=== PATIENT | female | born 1935 | race Caucasian/White ===

== ENCOUNTER → 2017-08-06 | Day surgery (SDC) | payer MEDICARE ==
[~2017-08-06] MED LIST: AMLODIPINE BESYL5 MG PO; ARICEPT5 MG PO; ASPIR 8181 MG PO; CALTRATE 600 W1 EACH PO; CLONIDINE HCL0.3 MG PO; CORDARONE200 MG PO; COREG3.125 MG PO; DEXAMETHASONE SOD PHOS 10 MG/1 ML VIAL ONE; FENTANYL CITRATE/PF 100MCG/2 ML INJ ONE; FISH OIL500 M1 PO; FUROSEMIDE40 MG PO; HUMULIN R100 UNIT/2; HYDRALAZINE HCL25 MG PO; IOPAMIDOL 200 MG/ML 20 ML VIAL IT ONE; JANUVIA100 MG PO; LIDOCAINE HCL 1% 30ML-PF VIAL ONE; LIDOCAINE HCL 2% LOCAL INJ 5 ML SDV VIAL INJ ONE; MECLIZINE HCL12.5 MG PO; MIDAZOLAM HCL 2 MG/2 ML VIAL ONE; NIFEDIPINE XL30 MG PO; NORCO 7.5-3251 EACH PO; OXYBUTYNIN CHLOR5 M1 PO; PEPCID20 MG PO; PLAVIX75 MG PO; PRAVASTATIN SOD20 MG PO; PROPOFOL IV EMULSION 10 MG/ML 20 ML VIAL ONE; SEROQUEL25 MG PO; SERTRALINE HCL25 MG PO; TYLENOL EXTRA500 MG PO; VASOTEC5 MG PO; Z.0.CATAPRES0.2 MG PO; Z.0.GLUCOPHAGE500 MG PO; Z.0.JANUVIA100 MG PO; Z.0.LISINOPRIL20 MG PO; ZANTAC150 MG PO
== END | disposition home or self-care (01) ==
LOC: OR 05:46
PROVIDERS: ATTEND Physical Medicine & Rehabilitation Pain Medicine
DX: M54.16 Radiculopathy, lumbar region (principal); E11.9 Type 2 diabetes mellitus without complications; M17.12 Unilateral primary osteoarthritis, left knee; I25.10 Atherosclerotic heart disease of native coronary artery without angina pectoris; I11.0 Hypertensive heart disease with heart failure; I50.9 Heart failure, unspecified; G47.33 Obstructive sleep apnea (adult) (pediatric); N39.0 Urinary tract infection, site not specified; G30.9 Alzheimer's disease, unspecified; F02.80 Dementia in other diseases classified elsewhere, unspecified severity, without behavioral disturbance, psychotic disturbance, mood disturbance, and anxiety; F32.9 Major depressive disorder, single episode, unspecified; Z79.82 Long term (current) use of aspirin; Z79.02 Long term (current) use of antithrombotics/antiplatelets; Z90.5 Acquired absence of kidney; Z98.61 Coronary angioplasty status; Z95.810 Presence of automatic (implantable) cardiac defibrillator; Z85.528 Personal history of other malignant neoplasm of kidney
CPT/HCPCS: 36415; 64483; 64484; 77003; 82948; 93005; J1100; J2001 ×2; J2250; Q9966

== ENCOUNTER → 2017-09-23 | Outpatient (CLI) | payer MEDICARE ==
[~2017-09-23] MED LIST changes: -DEXAMETHASONE SOD PHOS 10 MG/1 ML VIAL ONE; -FENTANYL CITRATE/PF 100MCG/2 ML INJ ONE; -IOPAMIDOL 200 MG/ML 20 ML VIAL IT ONE; -LIDOCAINE HCL 1% 30ML-PF VIAL ONE; -LIDOCAINE HCL 2% LOCAL INJ 5 ML SDV VIAL INJ ONE; -MIDAZOLAM HCL 2 MG/2 ML VIAL ONE; -PROPOFOL IV EMULSION 10 MG/ML 20 ML VIAL ONE
--- NOTE | 2017-09-23 12:15 | Diagnostic Imaging Report ---
PROCEDURE: Frontal and lateral views of the chest. COMPARISON: Chest 2 views 11/11/2016. INDICATIONS: MALIGNANT NEOPLASM OF KIDNEY FINDINGS: Lines/tubes: Left chest cardiac device with tip projecting over the expected region of the right atrium and ventricle. Lungs: The lungs are well inflated and clear. There is no evidence of pneumonia or pulmonary edema. Pleura: There is no pleural effusion or pneumothorax. Heart and mediastinum: The heart and the mediastinum are normal. Bones: No acute bony abnormality. Degenerative changes of the thoracic spine. IMPRESSION: No acute radiographic abnormality. Dictated by: Luis Craig M.D. on 09/23/2017 at 12:16 Electronically approved by: Luis Craig M.D. on 09/23/2017 at 12:16
--- NOTE | 2017-09-23 13:07 | Diagnostic Imaging Report ---
PROCEDURE:US RETROPERITONEAL ( KIDNEY ). COMPARISON:Patients [facility], [place], US RETROPERITONEAL ( KIDNEY )., 11/11/2016, 12:26. INDICATIONS:F/U RT RCC \T\ PARTIAL NEPHRECTOMY 2006 TECHNIQUE: Rowell-scale and color sonographic images of the bilateral kidneys and bladder where obtained in transverse and longitudinal planes. FINDINGS: RIGHT KIDNEY: Postoperative changes are re-demonstrated from partial nephrectomy. The kidney measures 5.7 cm in length. Cysts: Unilocular cyst measures 10 x 9 x 9 mm in the interpolar cortex Solid masses: None Stones: None Hydronephrosis: None Echogenicity: Normal LEFT KIDNEY: 10.5 cm in length Cysts: None Solid masses: None Stones: None Hydronephrosis: None Echogenicity: Normal Bladder: Ureteral jets are visible. No free fluid. Visualized portions of the liver demonstrate no focal abnormality. CONCLUSION: Simple cyst in the right kidney as described above. No mass in either kidney to suggest RCC. Dictated by: Suresh Cam M.D. on 09/23/2017 at 13:07 Electronically approved by: Suresh Cam M.D. on 09/23/2017 at 13:07
== END ==
LOC: US 10:54
PROVIDERS: ATTEND Urology
DX: C64.1 Malignant neoplasm of right kidney, except renal pelvis (principal); M54.16 Radiculopathy, lumbar region
CPT/HCPCS: 71046; 76770

== ENCOUNTER → 2018-04-08 | Day surgery (SDC) | payer MEDICARE ==
[~2018-04-08] MED LIST changes: +COMBIVENT RESPIM4 GM IH; +DEXAMETHASONE SOD PHOS 10 MG/1 ML VIAL ONE; +IPRATROPIU0.2 MG/1 M NEB; +LIDOCAINE HCL 1% 30ML-PF VIAL ONE; +LIDOCAINE HCL 2% LOCAL INJ 5 ML SDV VIAL INJ ONE; +Lisinopril PO; +MYRBETRIQ50 MG PO; +NITROFURANTOIN100 MG PO; +NITROSTAT0.4 MG SL; +PRILOSEC10 M1 PEG; +PROPOFOL IV EMULSION 10 MG/ML 20 ML VIAL ONE; +RANEXA500 MG PO; +Xarelto PO
[2018-04-08 06:16] LABS: BASOPHILS # (AUTO) 0.1 (0.0-0.1); EOSINOPHILS # (AUTO) 0.1 (0.0-0.4); EOSINOPHILS % 2.3 % (0.0-6.0); HEMATOCRIT 34.1 % (34.2-44.1); HEMOGLOBIN 11.3 g/dL (12.0-16.0); LYMPHOCYTES # (AUTO) 1.3 (1.0-3.2); LYMPHOCYTES % 25.8 % (18.0-39.1); MEAN CORPUSCULAR HEMOGLOBIN 30.6 pg (28-32); MEAN CORPUSCULAR HGB CONC 33.1 g/dL (31-35); MEAN CORPUSCULAR VOLUME 92.4 fL (81-99); MONOCYTES # (AUTO) 0.5 (0.2-0.8); MONOCYTES % 9.4 % (4.4-11.3); NEUTROPHILS # (AUTO) 3.2 (2.1-6.9); NEUTROPHILS % 61.1 % (38.7-80.0); PLATELET COUNT 188 x10e3/uL (140-360); RED BLOOD COUNT 3.69 x10e6/uL (3.6-5.1); RED CELL DISTRIBUTION WIDTH 12.7 % (11.7-14.4)
[2018-04-08 08:10] VITALS: BP 148/57
--- OUTSIDE RECORDS SUMMARY | 2018-04-13 12:52 | XMS REPORT | Continuity of Care Document ---
Author Author Yusuf bailey [facility] Interface Address Unknown Phone Unavailable Problems Problem Status Onset Date Classification Date Reported Comments Source Discharge Diagnosis: Acute back pain 03/21/2015 03/24/2015 [facility] Discharge Diagnosis: Accidental fall 03/21/2015 03/24/2015 [facility] DIZZINESS Active 03/21/2015 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 Diabetes Resolved Problem 03/24/2015 [facility] HTN (<span ID="[id number]">Confirmed</span>) Resolved Problem 03/24/2015 [facility] Kidney cancer, primary, with metastasis from kidney to other site Resolved Problem 03/24/2015 [facility] Medications Medication Details Route Status Patient Instructions Ordering Provider Order Date Source Clonidine Hydrochloride 0.1 MG Oral Tablet 0.1 mg=1 tab, PO, BID, PRN Hypertension, # 20 tab, 3 Refill(s) Active 03/21/2015 [facility] Hydralazine Hydrochloride 25 MG Oral Tablet 25 mg, Route: PO, Drug form: TAB, ONCE, Dosing Weight 66.818, kg, Start date: 03/21/15 16:22:00, Stop date: 03/21/15 16:22:00 Inactive 03/21/2015 [facility] tramadol hydrochloride 50 MG Oral Tablet 50 mg=1 tab, PO, BID, X 15 day, # 30 tab, 0 Refill(s) Active 03/21/2015 [facility] Hydrochlorothiazide 25 mg, 1 tab, Route: PO, Drug form: TAB, ONCE, Dosing Weight 66.818, kg, Start date: 03/21/15 15:54:00, Stop date: 03/21/15 15:54:00Notes: (Same as: Hydrodiuril) With food. Inactive 03/21/2015 [facility] metoprolol tartrate 25 mg, 0.5 tab, Route: PO, Drug form: TAB, ONCE, Dosing Weight 66.818, kg, Priority: STAT, Start date: 03/21/15 15:53:00, Stop date: 03/21/15 15:53:00Notes: (Same as: Lopressor) Inactive 03/21/2015 [facility] potassium chloride 40 mEq, 2 tab, Route: PO, Drug form: ERTAB, ONCE, Dosing Weight 66.818, kg, Priority: STAT, Start date: 03/21/15 15:47:00, Stop date: 03/21/15 15:47:00Notes: (Same as: K-Dur 20) "Do Not Crush" With food and full glass of water Inactive 03/21/2015 [facility] Saline Flush 0.9% 10 mL, Route: IVP, Drug Form: INJ, Dosing Weight 66.818, kg, PRN, PRN Line Flush, Start date: 03/21/15 12:06:00, Duration: 30 day, Stop date: 04/20/15 12:05:00Notes: (Same as: BD Posiflush) Inactive 03/21/2015 [facility] Allergies, Adverse Reactions, Alerts Substance Category Reaction Severity Reaction type Status Date Reported Comments Source codeine Assertion Drug allergy Active [facility] Immunizations Immunization Date Given Site Status Last Updated Comments Source Results Order Name Results Value Reference Range Date Interpretation Comments Source CARDIAC ENZYMES Troponin-I null 0.00 - 0.40 03/21/2015 [facility] CARDIAC ENZYMES Total CK 120 unit/L 12 - 191 03/21/2015 [facility] CARDIAC ENZYMES CK MB 1.8 ng/mL 0.5 - 3.6 03/21/2015 [facility] CARDIAC ENZYMES CK MB Index 1.5 0.0 - 2.5 03/21/2015 [facility] CHEM PANEL Alk Phos 79 unit/L 39 - 136 03/21/2015 [facility] CHEM PANEL Bili Total 0.6 mg/dL 0.2 - 1.3 03/21/2015 [facility] CHEM PANEL AST 23 unit/L 0 - 37 03/21/2015 [facility] CHEM PANEL ALT 27 unit/L 0 - 65 03/21/2015 [facility] CHEM PANEL Globulin 3.7 g/dL 2.0 - 4.0 03/21/2015 [facility] CHEM PANEL A/G Ratio 1.1 0.7 - 1.6 03/21/2015 [facility] CHEM PANEL B/C Ratio 16 6 - 25 03/21/2015 [facility] CHEM PANEL AGAP 9.3 meq/L 10.0 - 20.0 03/21/2015 [facility] CHEM PANEL Creatinine Lvl 1.3 mg/dL 0.5 - 1.4 03/21/2015 [facility] CHEM PANEL Albumin Lvl 4.0 g/dL 3.5 - 5.0 03/21/2015 [facility] CHEM PANEL Total Protein 7.7 g/dL 6.4 - 8.4 03/21/2015 [facility] CHEM PANEL CO2 31 meq/L 24 - 32 03/21/2015 [facility] CHEM PANEL Glucose Lvl 151 mg/dL 70 - 99 03/21/2015 [facility] CHEM PANEL BUN 21 mg/dL 7 - 22 03/21/2015 [facility] CHEM PANEL Calcium Lvl 9.2 mg/dL 8.5 - 10.5 03/21/2015 [facility] CHEM PANEL Sodium Lvl 135 meq/L 135 - 145 03/21/2015 [facility] CHEM PANEL Chloride Lvl 98 meq/L 95 - 109 03/21/2015 [facility] CHEM PANEL Potassium Lvl 3.3 meq/L 3.5 - 5.1 03/21/2015 [facility] CHEM PANEL eGFR 39 mL/min/1.73m2 03/21/2015 Result Comment: The eGFR is calculated using the CKD-EPI formula. In most young, healthy individuals the eGFR will be >90 mL/min/1.73m2. The eGFR declines with age. An eGFR of 60-89 may be normal in some populations, particularly the elderly, for whom the CKD-EPI formula has not been extensively validated. Use of the eGFR is not recommended in the following populations: Individuals with unstable creatinine concentrations, including patients and those with serious co-morbid conditions. Patients with extremes in muscle mass or diet. The data above are obtained from the National Kidney Disease Education Program (NKDEP) which additionally recommends that when the eGFR is used in patients with extremes of body mass index for purposes of drug dosing, the eGFR should be multiplied by the estimated BMI. [facility] CHEM PANEL Magnesium Lvl 1.7 mg/dL 1.8 - 2.4 03/21/2015 [facility] CHEM PANEL Phosphorus 2.7 mg/dL 2.5 - 4.5 03/21/2015 [facility] HEMATOLOGY Hgb 13.2 g/dL 12.0 - 16.0 03/21/2015 [facility] HEMATOLOGY Hct 39.8 % 36.0 - 48.0 03/21/2015 [facility] HEMATOLOGY MCV 86.0 fL 80.0 - 98.0 03/21/2015 [facility] HEMATOLOGY MPV 8.5 fL 7.4 - 10.4 03/21/2015 [facility] HEMATOLOGY RDW 14.2 % 11.5 - 14.5 03/21/2015 [facility] Platelet 182 K/CMM 133 - 450 03/21/2015 [facility] MCHC 33.1 g/dL 32.0 - 36.0 03/21/2015 [facility] MCH 28.4 pg 27.0 - 31.0 03/21/2015 [facility] HEMATOLOGY RBC 4.63 M/CMM 4.20 - 5.40 03/21/2015 [facility] HEMATOLOGY WBC 8.8 K/CMM 3.7 - 10.4 03/21/2015 [facility] HEMATOLOGY INR 1.06 0.85 - 1.17 03/21/2015 [facility] HEMATOLOGY PTT 30.1 s 22.9 - 35.8 03/21/2015 [facility] HEMATOLOGY PT 14.1 s 12.0 - 14.7 03/21/2015 [facility] HEMATOLOGY Basophils # 0.1 K/CMM 0.0 - 0.2 03/21/2015 [facility] HEMATOLOGY Monocytes # 0.2 K/CMM 0.0 - 0.8 03/21/2015 [facility] HEMATOLOGY Segs-Bands # 7.8 K/CMM 1.5 - 8.1 03/21/2015 [facility] HEMATOLOGY Lymphocytes # 0.6 K/CMM 1.0 - 5.5 03/21/2015 [facility] HEMATOLOGY Basophils 1.1 % 0.0 - 1.0 03/21/2015 [facility] HEMATOLOGY Monocytes 2.8 % 2.0 - 12.0 03/21/2015 [facility] HEMATOLOGY Lymphocytes 7.2 % 20.0 - 40.0 03/21/2015 [facility] HEMATOLOGY Segs 88.9 % 45.0 - 75.0 03/21/2015 [facility] URINE AND STOOL UA Color Ltyellow 03/21/2015 [facility] URINE AND STOOL UA Urobilinogen <=1.0 mg/dL 0.1 - 1.0 03/21/2015 [facility] URINE AND STOOL UA Bacteria Occasional /HPF None Seen /HPF 03/21/2015 [facility] URINE AND STOOL UA RBC 3 /HPF 0 - 2 03/21/2015 [facility] URINE AND STOOL UA WBC 1 /HPF 0 - 5 03/21/2015 [facility] URINE AND STOOL UA Leuk Est Negative (03/21/15 12:24 PM) Negative 03/21/2015 [facility] URINE AND STOOL UA Sq Epi Occasional /LPF Few /LPF 03/21/2015 [facility] URINE AND STOOL UA Nitrite Negative (03/21/15 12:24 PM) Negative 03/21/2015 [facility] URINE AND STOOL UA Blood Negative (03/21/15 12:24 PM) Negative 03/21/2015 [facility] URINE AND STOOL UA Bili Negative *NA* (03/21/15 12:24 PM) Negative 03/21/2015 [facility] URINE AND STOOL UA Ketones Trace mg/dL Negative mg/dL 03/21/2015 [facility] URINE AND STOOL UA Glucose 500 mg/dL Negative mg/dL 03/21/2015 [facility] URINE AND STOOL UA pH 8.0 5.0 - 8.0 03/21/2015 [facility] URINE AND STOOL UA Spec Grav 1.008 <=1.030 03/21/2015 [facility] URINE AND STOOL UA Turbidity Clear (03/21/15 12:24 PM) Clear 03/21/2015 [facility] URINE AND STOOL UA Protein 100 mg/dL Negative mg/dL 03/21/2015 [facility] Spine cervical wo contrast CT Spine cervical wo contrast CT CT cervical spine without contrast with sagittal and coronal reformatted images. HISTORY: Trauma, pain. COMPARISON: None available. FINDINGS: No fracture is seen. Vertebral body heights are maintained. No facet subluxation. Severe multilevel left-sided facet arthrosis and moderate multilevel right-sided facet arthrosis. Minimal grade 1 degenerative anterolisthesis of C6 on C7. Mild- moderate multilevel degenerative disc space narrowing with mild endplate spurring. Multilevel moderate to severe left neural foraminal narrowing related to uncovertebral spurring and facet arthrosis. The paraspinal soft tissues are unremarkable. A 4 mm right thyroid nodule is noted. Lung apices are clear. Moderate carotid calcification. IMPRESSION: 1. No acute abnormality. 2. Cervical spondylosis with multilevel moderate to severe left neural foraminal narrowing. 3. Small right thyroid nodule and moderate carotid calcification. SL: 16 03/21/2015 - - Read by: Matthew Johnson MD Dictated Date/time: 03/21/15 13:15 Electronically Signed by: Matthew Johnson MD 03/21/15 13:19 FINAL REPORT [facility] Brain wo contrast CT Brain wo contrast CT CT Head no Contrast: COMPARISON: No priors CLINICAL HX: Posterior head pain, fall TECHNIQUE: Contiguous transaxial images of the brain were performed without administration of IV contrast. FINDINGS: There is no evidence for parenchymal bleed, extra-axial collections, intracranial masses or midline shift. No displaced fractures of the calvarium or other significant bony abnormality is noted. There is mild cerebral atrophy. Extensive decrease in attenuation in the periventricular white matter is likely related to chronic ischemic change from small vessel disease. No acute infarct is evident. The visualized paranasal sinuses and the mastoids are clear. IMPRESSION: No significant acute brain abnormality is noted. SL:13 03/21/2015 - - Read by: Josue Dotson MD Dictated Date/time: 03/21/15 12:54 Electronically Signed by: Josue Dotson MD 03/21/15 12:59 FINAL REPORT [facility] Chest 1view DX Chest 1view DX CHEST, ONE VIEW HISTORY: Chest pain. COMPARISON: None available. FINDINGS: The lungs are clear. No significant pleural effusion. No pneumothorax. Heart size normal. Transvenous cardiac pacemaker/AICD. No acute osseous abnormality. SL: 16 03/21/2015 - - Read by: Matthew Johnson MD Dictated Date/time: 03/21/15 13:21 Electronically Signed by: Matthew Johnson MD 03/21/15 13:21 FINAL REPORT [facility] Spine lumbar 2 or 3 views DX Spine lumbar 2 or 3 views DX PROCEDURE: Spine lumbar AP lateral CLINICAL INFORMATION Pain Post Trauma COMPARISON: None. Three views. Mild lumbar dextroscoliosis. Anterolisthesis of L4 on L5 measures 15 mm. Maintained lumbar vertebral body heights. Disc height loss greatest at L1-L2 through L3-L4 with anterior spurring. Calcified aorta. Maintained pedicles, spinous processes. Obscured transverse processes by bowel gas. Surgical clips in the right upper quadrant. Constipation. IMPRESSION: 1. L4-L5 anterolisthesis. 2. Spondylosis greatest at L2-L4. SL: 12 03/21/2015 - - Read by: Jp Weston MD Dictated Date/time: 03/21/15 12:43 Electronically Signed by: Jp Weston MD 03/21/15 12:49 FINAL REPORT [facility] Vital Signs Vital Sign Value Date Comments Source Respitory Rate 18 03/21/2015 [facility] Systolic (mm Hg) 126 03/21/2015 [facility] Diastolic (mm Hg) 83 03/21/2015 [facility] Temperature Oral (F) 97.7 F 03/21/2015 [facility] Systolic (mm Hg) 180 03/21/2015 [facility] Diastolic (mm Hg) 82 03/21/2015 [facility] Respitory Rate 23 03/21/2015 [facility] Systolic (mm Hg) 187 03/21/2015 [facility] Diastolic (mm Hg) 92 03/21/2015 [facility] Respitory Rate 19 03/21/2015 [facility] Heart Rate 64 03/21/2015 [facility] Weight 66.818 03/21/2015 [facility] BMI Calculated 26.94 03/21/2015 [facility] Temperature Oral (F) 98.0 F 03/21/2015 [facility] Height 157.48 cm 03/21/2015 [facility] Encounters Location Location Details Encounter Type Encounter Number Reason For Visit Attending Provider ADM Date DC Date Status Source [facility] [id number] Armand Lynn 03/21/2015 03/21/2015 [facility] Procedures Procedure Code Date Perfomer Comments Source
--- OUTSIDE RECORDS SUMMARY | 2018-04-13 12:52 | XMS REPORT | Summary of Care ---
Author Author [facility] Organization [facility] Address Unknown Phone Unavailable Encounter LORENE Holt(GILMA) [id number] Date(s): 03/21/15 - 03/21/15 [facility] [address] [place] [address]- [phone] Discharge Diagnosis: Acute back pain Discharge Diagnosis: Accidental fall Discharge Disposition: Home Attending Physician: Armand Lynn MD Vital Signs 1 2 3 Most recent to oldest [Reference Range]: 157.48 cm (03/21/15 11:27 AM) Height 1 2 3 Most recent to oldest [Reference Range]: 97.7 DegF (03/21/15 6:00 PM) 98.0 DegF (03/21/15 11:27 AM) Temperature Oral [96.4-99.1 DegF] 1 2 3 Most recent to oldest [Reference Range]: 126/83 mmHg (03/21/15 6:00 PM) 180/82 mmHg *HI* (03/21/15 5:15 PM) 187/92 mmHg *HI* (03/21/15 4:15 PM) Blood Pressure [90-140/60-90 mmHg] 1 2 3 Most recent to oldest [Reference Range]: 18 BRMIN (03/21/15 6:00 PM) 23 BRMIN *HI* (03/21/15 5:15 PM) 19 BRMIN (03/21/15 4:15 PM) Respiratory Rate [14-20 BRMIN] 1 2 3 Most recent to oldest [Reference Range]: 64 bpm (03/21/15 11:27 AM) Peripheral Pulse Rate [60-100 bpm] 1 2 3 Most recent to oldest [Reference Range]: 66.818 kg (03/21/15 11:27 AM) Weight 1 2 3 Most recent to oldest [Reference Range]: 26.94 m2 (03/21/15 11:27 AM) Body Mass Index Problem List Condition Effective Dates Status Health Status Informant CHF (congestive Resolved heart failure)(Confirmed) Diabetes(Confirmed) Resolved HTN Resolved (hypertension)(Confi rmed) Kidney cancer, Resolved primary, with metastasis from kidney to other site(Confirmed) Allergies, Adverse Reactions, Alerts Substance Reaction Severity Status codeine Active Medications cloNIDine 0.1 mg oral tablet 0.1 mg=1 tab, PO, BID, PRN Hypertension, # 20 tab, 3 Refill(s) Start Date: 03/21/15 Stop Date: 04/30/15 Status: Ordered hydrALAZINE 25 mg oral tablet 25 mg, Route: PO, Drug form: TAB, ONCE, Dosing Weight 66.818, kg, Start date: 16:22:00, Stop date: 03/21/15 16:22:00 Start Date: 03/21/15 Stop Date: 03/21/15 Status: Completed hydrochlorothiazide 25 mg, 1 tab, Route: PO, Drug form: TAB, ONCE, Dosing Weight 66.818, kg, Start d ate: 03/21/15 15:54:00, Stop date: 03/21/15 15:54:00 Notes: (Same as: Hydrodiuril) With food. Start Date: 03/21/15 Stop Date: 03/21/15 Status: Discontinued metoprolol tartrate 25 mg, 0.5 tab, Route: PO, Drug form: TAB, ONCE, Dosing Weight 66.818, kg, Prior ity: STAT, Start date: 03/21/15 15:53:00, Stop date: 03/21/15 15:53:00 Notes: (Same as: Lopressor) Start Date: 03/21/15 Stop Date: 03/21/15 Status: Completed potassium chloride 40 mEq, 2 tab, Route: PO, Drug form: ERTAB, ONCE, Dosing Weight 66.818, kg, Prio rity: STAT, Start date: 03/21/15 15:47:00, Stop date: 03/21/15 15:47:00 Notes: (Same as: K-Dur 20)"Do Not Crush" With food and full glass of water Start Date: 03/21/15 Stop Date: 03/21/15 Status: Completed Saline Flush 0.9% 10 mL, Route: IVP, Drug Form: INJ, Dosing Weight 66.818, kg, PRN, PRN Line Flush , Start date: 03/21/15 12:06:00, Duration: 30 day, Stop date: 04/20/15 12:05:00 Notes: (Same as: BD Posiflush) Start Date: 03/21/15 Stop Date: 03/21/15 Status: Discontinued tramadol 50 mg oral tablet 50 mg=1 tab, PO, BID, X 15 day, # 30 tab, 0 Refill(s) Start Date: 03/21/15 Stop Date: 04/05/15 Status: Ordered Results ELECTROLYTES Most recent to 1 oldest [Reference Range]: Sodium Lvl [135-145 135 mEq/L mEq/L] (03/21/15 12:24 PM) Potassium Lvl 3.3 mEq/L [3.5-5.1 mEq/L] *LOW* (03/21/15 12:24 PM) Chloride Lvl [95-109 98 mEq/L mEq/L] (03/21/15 12:24 PM) CO2 [24-32 mEq/L] 31 mEq/L (03/21/15 12:24 PM) AGAP [10.0-20.0 9.3 mEq/L mEq/L] *LOW* (03/21/15 12:24 PM) CHEM PANEL Most recent to 1 oldest [Reference Range]: Creatinine Lvl 1.3 mg/dL [0.5-1.4 mg/dL] (03/21/15 12:24 PM) eGFR 39 mL/min/1.73m2 1 *NA* (03/21/15 12:24 PM) BUN [7-22 mg/dL] 21 mg/dL (03/21/15 12:24 PM) B/C Ratio [6-25] 16 (03/21/15 12:24 PM) Glucose Lvl [70-99 151 mg/dL mg/dL] *HI* (03/21/15 12:24 PM) Total Protein 7.7 g/dL [6.4-8.4 g/dL] (03/21/15 12:24 PM) Albumin Lvl [3.5-5.0 4.0 g/dL g/dL] (03/21/15 12:24 PM) Globulin [2.0-4.0 3.7 g/dL g/dL] (03/21/15 12:24 PM) A/G Ratio [0.7-1.6] 1.1 (03/21/15 12:24 PM) Calcium Lvl 9.2 mg/dL [8.5-10.5 mg/dL] (03/21/15 12:24 PM) Phosphorus [2.5-4.5 2.7 mg/dL mg/dL] (03/21/15 12:24 PM) Magnesium Lvl 1.7 mg/dL [1.8-2.4 mg/dL] *LOW* (03/21/15:24 PM) ALT [0-65 unit/L] 27 unit/L (03/21/15 12:24 PM) AST [0-37 unit/L] 23 unit/L (03/21/15 12:24 PM) Alk Phos [39-136 79 unit/L unit/L] (03/21/15:24 PM) Bili Total [0.2-1.3 0.6 mg/dL mg/dL] (03/21/15 12:24 PM) 1Result Comment: The eGFR is calculated using the [...] from the National Kidney Disease Education Program ( NKDEP) which additionally recommends that when the eGFR is used in patients with extremes of body mass index for purposes of drug dosing, the eGFR should be mul tiplied by the estimated BMI. CARDIAC ENZYMES Most recent to 1 oldest [Reference Range]: Total CK [12-191 120 unit/L unit/L] (03/21/15 12:24 PM) CK MB [0.5-3.6 1.8 ng/mL ng/mL] (03/21/15 12:24 PM) CK MB Index 1.5 [0.0-2.5] (03/21/15 12:24 PM) Troponin-I <0.02 ng/mL [0.00-0.40 ng/mL] (03/21/15 12:24 PM) URINE AND STOOL Most recent to 1 oldest [Reference Range]: UA Turbidity [Clear] Clear (03/21/15 12:24 PM) UA Color Ltyellow *NA* (03/21/15 12:24 PM) UA pH [5.0-8.0] 8.0 (03/21/15 12:24 PM) UA Spec Grav 1.008 [<=1.030] (03/21/15 12:24 PM) UA Glucose [Negative 500 mg/dL mg/dL] *ABN* (03/21/15 12:24 PM) UA Blood [Negative] Negative (03/21/15 12:24 PM) UA Ketones [Negative Trace mg/dL mg/dL] *ABN* (03/21/15 12:24 PM) UA Protein [Negative 100 mg/dL mg/dL] *ABN* (03/21/15 12:24 PM) UA Urobilinogen <=1.0 mg/dL [0.1-1.0 mg/dL] *NA* (03/21/15 12:24 PM) UA Bili [Negative] Negative *NA* (03/21/15 12:24 PM) UA Leuk Est Negative [Negative] (03/21/15 12:24 PM) UA Nitrite Negative [Negative] (03/21/15 12:24 PM) UA WBC [0-5 /HPF] 1 /HPF (03/21/15 12:24 PM) UA RBC [0-2 /HPF] 3 /HPF *HI* (03/21/15 12:24 PM) UA Bacteria [None Occasional /HPF Seen /HPF] *NA* (03/21/15 12:24 PM) UA Sq Epi [Few /LPF] Occasional /LPF *NA* (03/21/15 12:24 PM) HEMATOLOGY Most recent to 1 oldest [Reference Range]: WBC [3.7-10.4 K/CMM] 8.8 K/CMM (03/21/15 12:24 PM) RBC [4.20-5.40 4.63 M/CMM M/CMM] (03/21/15 12:24 PM) Hgb [12.0-16.0 g/dL] 13.2 g/dL (03/21/15 12:24 PM) Hct [36.0-48.0 %] 39.8 % (03/21/15 12:24 PM) MCV [80.0-98.0 fL] 86.0 fL (03/21/15:24 PM) MCH [27.0-31.0 pg] 28.4 pg (03/21/15:24 PM) MCHC [32.0-36.0 33.1 g/dL g/dL] (03/21/15:24 PM) RDW [11.5-14.5 %] 14.2 % (03/21/15:24 PM) Platelet [133-450 182 K/CMM K/CMM] (03/21/15:24 PM) MPV [7.4-10.4 fL] 8.5 fL (03/21/15 12:24 PM) Segs [45.0-75.0 %] 88.9 % *HI* (03/21/15 12:24 PM) Lymphocytes 7.2 % [20.0-40.0 %] *LOW* (03/21/15:24 PM) Monocytes [2.0-12.0 2.8 % %] (03/21/15 12:24 PM) Basophils [0.0-1.0 1.1 % %] *HI* (03/21/15 12:24 PM) Segs-Bands # 7.8 K/CMM [1.5-8.1 K/CMM] (03/21/15 12:24 PM) Lymphocytes # 0.6 K/CMM [1.0-5.5 K/CMM] *LOW* (03/21/15:24 PM) Monocytes # [0.0-0.8 0.2 K/CMM K/CMM] (03/21/15 12:24 PM) Basophils # [0.0-0.2 0.1 K/CMM K/CMM] (03/21/15 12:24 PM) PT [12.0-14.7 14.1 seconds seconds] (03/21/15 12:24 PM) INR [0.85-1.17] 1.06 (03/21/15 12:24 PM) PTT [22.9-35.8 30.1 seconds seconds] (03/21/15 12:24 PM) Immunizations No data available for this section Procedures No data available for this section Social History Social History Type Response Smoking Status Cigarette Smoking Last 365 Days No; Reg Smoking Cessation Counseling No; Former smoker; Exposure to Tobacco Smoke None Assessment and Plan No data available for this section
--- OUTSIDE RECORDS SUMMARY | 2018-04-13 12:52 | XMS REPORT ---
Author Author [facility] Address Unknown Phone Unavailable Care Team Providers Care Circulation Man Name Role Phone VIVIANA CEDILLO Unavailable Unavailable Problems This patient has no known problems. Allergies, Adverse Reactions, Alerts This patient has no known allergies or adverse reactions. Medications This patient has no known medications. Results Test Description Test Time Test Comments Text Results Atomic Results Result Comments CHEST 2 VIEWS 2018-03-09 11:25:00 [place] [address] Patient Name: JULIO CESAR NATION MR #: [id number] : 1935 Age/Sex: 82/F Req #: [id number] Adm Physician: Ordered by: VIVIANA CEDILLO MD Report #: [id number] Location: US Room/Bed: Procedure: [id number] DX/CHEST 2 VIEWS Exam Date: 03/08/18 Exam Time: 1440 REPORT STATUS: Signed PROCEDURE: Frontal and lateral views of the chest. COMPARISON: Chest radiograph 09/23/17. INDICATIONS: CHESK UP. HX RENAL CELL CARCINOMA FINDINGS: Lines/tubes: Left sided ACD with lead tips projecting over the right atrium and ventricle. Lungs: The lungs are well inflated and clear. There is no evidence of pneumonia or pulmonary edema. Pleura: There is no pleural effusion or pneumothorax. Heart and mediastinum: The cardiomediastinal silhouette is unremakrable. Bones: No acute bony abnormality. IMPRESSION: No acute radiographic abnormality. Dictated by: ELIAZAR LAWRENCE M.D. on 03/09/2018 at 11:25 Electronically approved by: ELIAZAR LAWRENCE M.D. on 03/09/2018 at 11:25 Dictated By: ELIAZAR LAWRENCE MD 112 Transcribed By: DANETTE on 03/09/18 1125 COPY TO: VIVIANA CEDILLO MD US RENAL RETROPERITONEAL COMP 2018-03-08 16:54:00 [place] [address] Patient Name: JULIO CESAR NATION MR #: [id number] : 1935 Age/Sex: 82/F Req #: [id number] Adm Physician: Ordered by: VIVIANA CEDILLO MD Report #: [id number] Location: US Room/Bed: Procedure: [id number] US/US RENAL RETROPERITONEAL COMP Exam Date: 03/08/18 Exam Time: 1416 REPORT STATUS: Signed EXAM: Renal Ultrasound INDICATION: COMPARISON: Renal ultrasound dated 09/23/2017 TECHNIQUE: Transverse and longitudinal images of the kidneys and bladder were obtained. FINDINGS: Right Kidney: Size: 5.9 cm Echogenicity: Normal Parenchymal thickness: Decreased Collecting system: No hydronephrosis Stones: None Cyst/Mass: Lateral midpole 1.2 x 0.8 x 1.1 cm cyst. Left Kidney: Size: 10 cm Echogenicity: Normal Parenchymal thickness: Normal Collecting system: No hydronephrosis Stones: None Cyst/Mass: None Bladder: Unremarkable IMPRESSION: Small mildly atrophic right kidney. Otherwise, unremarkable. No significantly changed exophytic right midpole cyst. Signed by: Dr. Mil Urbina MD on 03/08/2018 4:59 PM Dictated By: MIL URBINA MD 58 Transcribed By: JEFERSON on 03/08/181658 COPY TO: VIVIANA CEDILLO MD CHEST 2 VIEWS [place] [address] Patient Name: JULIO CESAR NATION MR #: [id number] : 1935 Age/Sex: 82/F Req #: [id number] Adm Physician: Ordered by: VIVIANA CEDILLO MD Report #: [id number] Location: Room/Bed: Procedure: [id number] DX/CHEST 2 VIEWS Exam Date: 09/23/17 Exam Time: 1110 REPORT STATUS: Signed PROCEDURE: Frontal and lateral views of the chest. COMPARISON: Chest 2 views 11/11/2016. INDICATIONS: MALIGNANT NEOPLASM OF KIDNEY FINDINGS: Lines/tubes: Left chest cardiac device with tip projecting over the expected region of the right atrium and ventricle. Lungs: The lungs are well inflated and clear. There is no evidence of pneumonia or pulmonary edema. Pleura: There is no pleural effusion or pneumothorax. Heart and mediastinum: The heart and the mediastinum are normal. Bones: No acute bony abnormality. Degenerative changes of the thoracic spine. IMPRESSION: No acute radiographic abnormality. Dictated by: Dario Ceballos M.D. on 09/23/2017 at 12:16 Electronically approved by: Dario Ceballos M.D. on 09/23/2017 at 12:16 Dictated By: DARIO CEBALLOS MD 15 Transcribed By: DANETTE on 09/23/171215 COPY TO: VIVIANA CEDILLO MD US RENAL RETROPERITONEAL COMP [facility] [address] [address] Patient Name: JULIO CESAR NATION MR #: [id number] : 1935 Age/Sex: 82/F Req #: [id number] Adm Physician: Ordered by: VIVIANA CEDILLO MD Report #: [id number] Location: Room/Bed: Procedure: [id number] US/US RENAL RETROPERITONEAL COMP Exam Date: 09/23/17 Exam Time: 1135 REPORT STATUS: Signed PROCEDURE: US RETROPERITONEAL ( KIDNEY ). COMPARISON: [facility], , US RETROPERITONEAL ( KIDNEY )., 11/11/2016, 12:26. INDICATIONS: F/U RT RCC T PARTIAL NEPHRECTOMY 2006 TECHNIQUE: Rowell-scale and color sonographic images of the bilateral kidneys and bladder where obtained in transverse and longitudinal planes. FINDINGS: RIGHT KIDNEY: Postoperative changes are re-demonstrated from partial nephrectomy. The kidney measures 5.7 cm in length. Cysts: Unilocular cyst measures 10 x 9 x 9 mm in the interpolar cortex Solid masses: None Stones: None Hydronephrosis: None Echogenicity: Normal LEFT KIDNEY: 10.5 cm in length Cysts: None Solid masses: None Stones: None Hydronephrosis: None Echogenicity: Normal Bladder: Ureteral jets are visible. No free fluid. Visualized portions of the liver demonstrate no focal abnormality. CONCLUSION: Simple cyst in the right kidney as described above. No mass in either kidney to suggest RCC. Dictated by: Gagan Cam M.D. on 09/23/2017 at 13:07 Electronically approved by: Gagan Cam M.D. on 09/23/2017 at 13:07 Dictated By: GAGAN CAM MD 1309 Transcribed By: DANETTE on 09/23/17 1307 COPY TO: VIVIANA CEDILLO MD
== END | disposition home or self-care (01) ==
LOC: OR 05:24
PROVIDERS: ATTEND Physical Medicine & Rehabilitation Pain Medicine
DX: M47.26 Other spondylosis with radiculopathy, lumbar region (principal); K21.9 Gastro-esophageal reflux disease without esophagitis; I44.0 Atrioventricular block, first degree; I25.10 Atherosclerotic heart disease of native coronary artery without angina pectoris; I11.0 Hypertensive heart disease with heart failure; I50.9 Heart failure, unspecified; I25.2 Old myocardial infarction; E11.9 Type 2 diabetes mellitus without complications; M17.12 Unilateral primary osteoarthritis, left knee; Z91.041 Radiographic dye allergy status; Z88.6 Allergy status to analgesic agent; Z79.82 Long term (current) use of aspirin; Z79.02 Long term (current) use of antithrombotics/antiplatelets; Z79.84 Long term (current) use of oral hypoglycemic drugs; Z85.528 Personal history of other malignant neoplasm of kidney; Z90.5 Acquired absence of kidney; Z95.5 Presence of coronary angioplasty implant and graft; Z95.810 Presence of automatic (implantable) cardiac defibrillator
CPT/HCPCS: 36415; 64483; 64484; 82948; 85025; J1100; J2001 ×2; J2704; 77003

== ENCOUNTER → 2018-05-04 | Outpatient (CLI) | payer MEDICARE ==
[~2018-05-04] MED LIST changes: -DEXAMETHASONE SOD PHOS 10 MG/1 ML VIAL ONE; -LIDOCAINE HCL 1% 30ML-PF VIAL ONE; -LIDOCAINE HCL 2% LOCAL INJ 5 ML SDV VIAL INJ ONE; -PROPOFOL IV EMULSION 10 MG/ML 20 ML VIAL ONE
--- NOTE | 2018-05-05 11:49 | Diagnostic Imaging Report ---
History: Chronic back pain. Comparison studies: None Technique: Axial images were obtained from T11 through the sacrum. Coronal and sagittal images reconstructed from the axial data. Intravenous contrast: None Dose modulation, iterative reconstruction, and/or weight based adjustment of the mA/kV was utilized to reduce the radiation dose to as low as reasonably achievable. Findings: Number of non-rib bearing vertebral bodies: 5 Alignment: Grade 1-2 to anterolisthesis of L4 over L5 (11 mm). Mild dextroscoliosis centered at L3. Soft tissues: No paraspinal abnormalities. Atherosclerotic calcifications of the abdominal aorta and branches. Paraspinal muscles: Mild fatty infiltration of the posterior paraspinal musculature at the upper and mid lumbar spine. Moderate fatty infiltration of the lower lumbar spine lumbosacral junction secondary to atrophy. Vertebrae: No acute fractures, infection or neoplasm. Mild depressed T12 superior endplate, chronic. Degenerative changes: L1-L2: Disc degeneration with vacuum disc phenomenon, decreased intervertebral space and endplate irregularities on the right endplates. Diffuse disc bulge and mild facet hypertrophy results in mild canal stenosis and mild right foraminal narrowing L2-L3: Disc degeneration with obliterated intervertebral space. Asymmetric left disc osteophyte complex, mild facet hypertrophy results in mild canal stenosis and moderate left foraminal narrowing. 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 L3-L4: Disc degeneration with decreased intervertebral space and mild vacuum disc phenomenon. Diffuse disc bulge, moderate facet hypertrophy and ligamentum flavum thickening results in mild canal stenosis, moderate right and severe left foraminal narrowing. L4-L5: Disc degeneration with obliterated intervertebral space, vacuum disc phenomenon, endplate sclerosis and irregularities. Grade 1-2 anterolisthesis severe bilateral facet hypertrophy results in moderate canal stenosis and severe bilateral foraminal narrowing. Posterior laminectomy with decompression. L5-S1: Disc degeneration with vacuum disc phenomenon. Diffuse disc bulge and moderate bilateral facet hypertrophy results in mild canal stenosis and moderate bilateral foraminal narrowing Sacroiliac joints: Mild degenerative changes, given by decreased joint space and sclerotic changes on the left. IMPRESSION: 1. Posterior decompression with laminectomy changes at L4-L5. 2. Residual moderate canal stenosis and severe bilateral foraminal narrowing at L4-L5 secondary to grade 1-2 anterolisthesis and severe facet hypertrophy. 3. Multilevel degenerative foraminal narrowing, moderate right at L1-L2, moderate left at L2-L3, moderate right and severe left at L3-L4 and moderate bilateral L5-S1. 4. Severe disc degeneration with vacuum disc phenomenon more significant at L4-L5. 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 Signed by: DR Rupesh Rutledge M.D. on 05/05/2018 11:45 AM
== END ==
LOC: CT 12:01
PROVIDERS: ATTEND Physical Medicine & Rehabilitation Pain Medicine
DX: M54.16 Radiculopathy, lumbar region (principal)
CPT/HCPCS: 72131

== ENCOUNTER → 2018-09-16 | Day surgery (SDC) | payer MEDICARE ==
[~2018-09-16] MED LIST changes: +ATORVASTATIN CA20 MG PO; +DEXAMETHASONE SOD PHOS 10 MG/1 ML VIAL ONE; +DEXTROSE 5% 250ML 250 ML IV ONE; +ELIQUIS PO; +ENTRESTO PO; +FENTANYL CITRATE/PF 100MCG/2 ML INJ ONE; +GLIMEPIRIDE2 MG PO; +LIDOCAINE HCL 1% 30ML-PF VIAL ONE; +MIDAZOLAM HCL 2 MG/2 ML VIAL ONE; +MONTELUKAST SOD10 MG PO; +NYSTOP60 GM TOP; +OXYBUTYNIN CHLOR5 MG PO; -PRILOSEC10 M1 PEG; +PRILOSEC10 M1 PO; +SODIUM CHLORIDE 0.9% 250ML 250 ML ONE
[2018-09-16 06:39] LABS: BASOPHILS # (AUTO) 0.1 (0.0-0.1); BASOPHILS % 0.9 % (0.0-1.0); EOSINOPHILS # (AUTO) 0.1 (0.0-0.4); EOSINOPHILS % 1.7 % (0.0-6.0); HEMATOCRIT 34.9 % (34.2-44.1); HEMOGLOBIN 11.2 g/dL (12.0-16.0); LYMPHOCYTES # (AUTO) 1.6 (1.0-3.2); LYMPHOCYTES % 26.7 % (18.0-39.1); MEAN CORPUSCULAR HEMOGLOBIN 29.2 pg (28-32); MEAN CORPUSCULAR HGB CONC 32.1 g/dL (31-35); MEAN CORPUSCULAR VOLUME 91.1 fL (81-99); MONOCYTES # (AUTO) 0.5 (0.2-0.8); MONOCYTES % 9.2 % (4.4-11.3); NEUTROPHILS # (AUTO) 3.6 (2.1-6.9); NEUTROPHILS % 61.2 % (38.7-80.0); PLATELET COUNT 195 x10e3/uL (140-360); RED BLOOD COUNT 3.83 x10e6/uL (3.6-5.1); RED CELL DISTRIBUTION WIDTH 13.9 % (11.7-14.4)
[2018-09-16 07:43] VITALS: BP 156/86
== END | disposition home or self-care (01) ==
LOC: OR 05:50
PROVIDERS: ATTEND Physical Medicine & Rehabilitation Pain Medicine
DX: M47.26 Other spondylosis with radiculopathy, lumbar region (principal); M17.12 Unilateral primary osteoarthritis, left knee; I25.10 Atherosclerotic heart disease of native coronary artery without angina pectoris; E11.9 Type 2 diabetes mellitus without complications; I11.0 Hypertensive heart disease with heart failure; I50.9 Heart failure, unspecified; K28.9 Gastrojejunal ulcer, unspecified as acute or chronic, without hemorrhage or perforation; K21.9 Gastro-esophageal reflux disease without esophagitis; I25.2 Old myocardial infarction; F32.9 Major depressive disorder, single episode, unspecified; Z91.041 Radiographic dye allergy status; Z88.6 Allergy status to analgesic agent; Z79.02 Long term (current) use of antithrombotics/antiplatelets; Z79.82 Long term (current) use of aspirin; Z79.84 Long term (current) use of oral hypoglycemic drugs; Z95.810 Presence of automatic (implantable) cardiac defibrillator; Z85.528 Personal history of other malignant neoplasm of kidney; Z90.5 Acquired absence of kidney
CPT/HCPCS: 36415; 64483; 64484; 82948; 85025; 93005; J1100; J2001; J2250; J7050; J7070; 77003

== ENCOUNTER 2018-10-22 15:21 | Emergency (ER) | payer MEDICARE ==
[~2018-10-22] VITALS: Ht 157.5 cm; Wt 77.6 kg
[~2018-10-22 15:21] MED LIST changes: -DEXAMETHASONE SOD PHOS 10 MG/1 ML VIAL ONE; -DEXTROSE 5% 250ML 250 ML IV ONE; -FENTANYL CITRATE/PF 100MCG/2 ML INJ ONE; -LIDOCAINE HCL 1% 30ML-PF VIAL ONE; -MIDAZOLAM HCL 2 MG/2 ML VIAL ONE; -SODIUM CHLORIDE 0.9% 250ML 250 ML ONE
[2018-10-22] MEDS ORDERED: HYDROCODONE/APAP 10MG-325MG TAB PO ONE (16:00)
--- NOTE | 2018-10-22 17:29 | Diagnostic Imaging Report ---
Exam: Head CT without contrast History: Trauma, fall Comparison studies: None available at the time of dictation. Technique: Axial images were obtained from the skull base to the vertex. Coronal and sagittal images reconstructed from the axial data. Dose modulation, iterative reconstruction, and/or weight based adjustment of the mA/kV was utilized to reduce the radiation dose to as low as reasonably achievable. Radiation dose: Total DLP: 921 mGy*cm. Estimated effective dose: DLP x 0.015 Intravenous contrast: None Findings: Scalp: No abnormalities. Bones: No fractures, blastic or lytic lesions. Brain sulci: Mildly prominent. Ventricles: Moderate supratentorial ventriculomegaly, disproportionate to sulcal prominence may be related to degree of central greater peripheral cortical volume loss. Consider normal pressure hydrocephalus (NPH) only in the appropriate clinical setting. No acute hydrocephalus. Extra-axial spaces: No masses, no fluid collection. Parenchyma: No mass, acute hemorrhage or acute or chronic cortical insults. Confluent hypodensity in the supratentorial white matter nonspecific most compatible with chronic microvascular ischemic changes. There are small chronic lacunar infarcts in the left lateral thalamus, left superior putamen, body of the left caudate nucleus and in the left occipital periventricular white matter. Sellar/suprasellar region: No abnormalities. Craniocervical junction: Patent foramen magnum. No Chiari one malformation. Incidental findings: Lens replacements for previous cataract surgery. Partially opacified right maxillary sinus with chronic mucoperiosteal thickening. Atherosclerotic calcifications in the carotid siphons and in left intradural vertebral artery. IMPRESSION: No acute abnormalities. Chronic findings: 1. Generalized brain volume loss. 2. Nonspecific ventriculomegaly as described. 3. Severe chronic microvascular ischemic changes with small chronic lacunar infarcts. Signed by: Dr. Wilmar Jernigan M.D. on 10/22/2018 5:26 PM
--- NOTE | 2018-10-22 17:30 | Diagnostic Imaging Report ---
TECHNIQUE: Computed tomography imaging of the LEFT HIP was performed WITHOUT injected contrast. Dose modulation, iterative reconstruction, and/or weight based adjustment of the mA/kV was utilized to reduce the radiation dose to as low as reasonably achievable. HISTORY: Pain, fall COMPARISON: None available. FINDINGS: No displaced fracture. Left hip arthrosis with chondrocalcinosis. Left sacroiliac joint degenerative arthrosis. Tendinopathy at the hamstring origin. Tendinopathy at the gluteal chirag insertion on the posterior femur. Atrophy of the gluteus minimus musculature likely related to chronic tendon tear. Vascular calcifications. IMPRESSION: No acute fracture. Signed by: Dr. Matthew Judd M.D. on 10/22/2018 5:26 PM
[2018-10-22 18:20] VITALS: BP 161/76
== END 2018-10-22 18:36 | disposition home or self-care (01) ==
LOC: ER 15:21
DX: M54.42 Lumbago with sciatica, left side (principal); M54.16 Radiculopathy, lumbar region; W01.0XXA Fall on same level from slipping, tripping and stumbling without subsequent striking against object, initial encounter; Y93.01 Activity, walking, marching and hiking; Y92.008 Other place in unspecified non-institutional (private) residence as the place of occurrence of the external cause; F03.90 Unspecified dementia, unspecified severity, without behavioral disturbance, psychotic disturbance, mood disturbance, and anxiety; E11.9 Type 2 diabetes mellitus without complications; K21.9 Gastro-esophageal reflux disease without esophagitis; F32.9 Major depressive disorder, single episode, unspecified
CPT/HCPCS: 70450; 99283

== ENCOUNTER → 2018-11-02 | Outpatient (CLI) | payer MEDICARE ==
--- NOTE | 2018-11-02 18:37 | Diagnostic Imaging Report ---
Cervical Spine, 3 views HISTORY: Pain status post trauma. COMPARISON: None. FINDINGS: On the lateral view, the cervical spine is visualized from the skull base to C6. The alignment is normal. No acute displaced fracture is identified involving the visualized cervical spine. Multilevel degenerative changes. Limited sensitivity for detection of subtle fractures, ligamentous, vascular and spinal cord abnormalities. Pacemaker partially visualized. IMPRESSION: No acute compression fracture. Multilevel degenerative changes. Concern remains, consider further evaluation with CT cervical spine without contrast. Signed by: Dr. Brandon George M.D. on 11/02/2018 6:34 PM
--- NOTE | 2018-11-02 18:38 | Diagnostic Imaging Report ---
Thoracic Spine - view(s) HISTORY: Pain COMPARISON: None FINDINGS: Superimposed structures and attenuation partially limit bone detail. The alignment is normal. No displaced fracture or compression deformity is identified. Multilevel degenerative disc disease and spondylosis. Left-sided cardiac pacemaker. Multiple surgical clips projected on the right upper quadrant. Vascular calcifications. IMPRESSION: Multilevel degenerative disc disease and spondylosis. No acute compression fractures. Signed by: Dr. Brandon George M.D. on 11/02/2018 6:35 PM
--- NOTE | 2018-11-02 18:41 | Diagnostic Imaging Report ---
KNEE LEFT THREE VIEWS - 3 views HISTORY: Pain. COMPARISON: None available. FINDINGS: Bones: No acute displaced fracture. Osseous alignment is within normal limits. Joints: Advanced tricompartmental degenerative changes most markedly involving the medial and patellofemoral compartments with chondrocalcinosis. Soft tissues: The soft tissues appear unremarkable. 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 Signed by: Dr. Brandon George M.D. on 11/02/2018 6:38 PM
--- NOTE | 2018-11-02 18:42 | Diagnostic Imaging Report ---
ELBOW LEFT COMPLETE - 3 views HISTORY: Pain status post trauma. COMPARISON: None available. FINDINGS: Bones: No acute displaced fracture. Osseous alignment is within normal limits. Joints: The joint spaces are well-maintained. Soft tissues: The soft tissues appear unremarkable. IMPRESSION: No acute radiographic abnormality. Signed by: Dr. Brandon George M.D. on 11/02/2018 6:38 PM
--- NOTE | 2018-11-02 18:50 | Diagnostic Imaging Report ---
EXAMINATION: Head CT HISTORY: Status post fall, he did back of the head 10 days ago, trauma, pain COMPARISON: Head CT 12 03/13 and 10/22/2018 TECHNIQUE: Multidetector axial images were obtained without contrast from the foramen magnum to the vertex . The images were reconstructed using brain and bone algorithms. Thin section brain images were reformatted into coronal and sagittal planes. Image quality: Motion/streaking artifact limits the evaluation of the skull base and posterior cranial fossa. Dose modulation, iterative reconstruction, and/or weight based adjustment of the mA/kV was utilized to reduce the radiation dose to as low as reasonably achievable. FINDINGS: Parenchyma: 1. Persistent severe confluent supratentorial white matter chronic microvascular ischemic changes. 2. Unchanged chronic lacunar infarcts in the left lateral thalamus, left superior putamen, body of the left caudate nucleus and left occipital periventricular white matter. 3. No mass or hemorrhage. No CT evidence of acute territorial vascular insult. Extra-axial spaces:No abnormal density. No extra-axial fluid collections Brain volume: Normal for age. Ventricles: Persistent moderate ventriculomegaly, which may be ex vacuo due to for lymph node versus communicating normal pressure hydrocephalus in the appropriate clinical setting. Arteries: No density suggestive of thrombus. Dural sinuses: No abnormal density. Extra-axial spaces: No abnormal density. Foramen magnum: No mass, Chiari malformation, or basilar invagination. Sella: No obvious mass. Paranasal/mastoid sinuses: Worsening partial opacification of the right maxillary sinus Skull/Scalp: No lytic or blastic lesions. No fractures. Incidental findings: Lens replacements for previous cataract surgery. Partially opacified right maxillary sinus with chronic mucoperiosteal thickening. IMPRESSION: 1. No acute posttraumatic intracranial abnormality, particularly no hemorrhage. 2. Stable ventriculomegaly compared to head CT 10/22/2018. 3. Persistent severe chronic microvascular ischemic changes and small chronic lacunar infarcts. The findings were discussed with AIDA Covington on 11/02/2018 at 6:46 PM Signed by: Dr. Marta Madrid M.D. on 11/02/2018 6:47 PM
== END ==
LOC: CT 17:33
PROVIDERS: ATTEND Family Medicine
DX: S09.90XA Unspecified injury of head, initial encounter (principal)
CPT/HCPCS: 70450; 72040; 72070

== ENCOUNTER → 2018-11-03 | Outpatient (CLI) | payer MEDICARE ==
--- NOTE | 2018-11-03 16:10 | Diagnostic Imaging Report ---
EXAMINATION: CHEST 2 VIEWS INDICATION: TB screening. COMPARISON: Thoracic spine radiographs 11/02/2018 FINDINGS: TUBES and LINES: Left-sided AICD with leads overlying the right atrium and right ventricle. LUNGS: Lungs are well inflated. No evidence of pneumonia or pulmonary edema. Bilateral calcified nodules in the lower lungs, suggestive of calcified granulomas. PLEURA: No pleural effusion or pneumothorax. HEART AND MEDIASTINUM: The cardiomediastinal silhouette is unremarkable. The aorta is ectatic with atherosclerotic calcifications. BONES AND SOFT TISSUES: No acute osseous abnormality. UPPER ABDOMEN: No free air under the diaphragm. Surgical clips project over the right upper quadrant. IMPRESSION: No specific radiographic evidence of active tuberculosis. Sequela of prior granulomatous disease. Signed by: Dr. Rosamaria Valdes MD on 11/03/2018 4:06 PM
== END ==
LOC: RAD 14:44
PROVIDERS: ATTEND Family Medicine
DX: Z11.1 Encounter for screening for respiratory tuberculosis (principal); Z87.09 Personal history of other diseases of the respiratory system
CPT/HCPCS: 71046

== ENCOUNTER 2018-12-23 14:00 | Outpatient (RCR) | payer MEDICARE | END 2018-12-26 | LOC: PT 14:00 | PROVIDERS: ATTEND Physical Medicine & Rehabilitation Pain Medicine | DX: M47.26 Other spondylosis with radiculopathy, lumbar region (principal); M54.5 Low back pain; M79.651 Pain in right thigh; M79.652 Pain in left thigh; M25.562 Pain in left knee; R26.2 Difficulty in walking, not elsewhere classified; M62.81 Muscle weakness (generalized) ==

== ENCOUNTER 2018-12-31 13:52 | Outpatient (RCR) | payer MEDICARE | END 2019-01-26 | LOC: PT 13:52 | PROVIDERS: ATTEND Physical Medicine & Rehabilitation Pain Medicine | DX: M47.26 Other spondylosis with radiculopathy, lumbar region (principal) ==

== ENCOUNTER → 2019-01-06 | Day surgery (SDC) | payer MEDICARE ==
[~2019-01-06] MED LIST changes: +DEXAMETHASONE SOD PHOS 10 MG/1 ML VIAL ONE; +IOPAMIDOL 200 MG/ML 20 ML VIAL IT ONE; +LIDOCAINE HCL 1% 30ML-PF VIAL ONE; +LIDOCAINE HCL 2% LOCAL INJ 5 ML SDV VIAL INJ ONE; +MIDAZOLAM HCL 2 MG/2 ML VIAL ONE; +PROPOFOL IV EMULSION 10 MG/ML 20 ML VIAL ONE
--- OUTSIDE RECORDS SUMMARY | 2019-01-06 05:47 | XMS REPORT | Continuity of Care Document ---
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/2014 [facility] [place] CHF (Confirmed) Resolved Problem 03/24/2015 [facility] Diabetes Resolved Problem 03/24/2015 [facility] HTN (Confirmed) Resolved Problem 03/24/2015 [facility] Kidney cancer, primary, with metastasis from kidney to other site Resolved Problem 03/24/2015 [facility] Medications Medication Details Route Status Patient Instructions Ordering Provider Order Date Source Clonidine Hydrochloride 0.1 MG Oral Tablet 0.1 mg=1 tab, PO, BID, PRN Hypertension, # 20 tab, 3 Refill(s) Active 03/21/2015 [facility] Hydralazine Hydrochloride 25 MG Oral Tablet 25 mg, Route: PO, Drug form: TAB, ONCE, Dosing Weight 66.818, kg, Start date: 03/21/15 16:22:00, Stop date: 03/21/15 16:22:00 Inactive 03/21/2015 [facility] tramadol hydrochloride 50 MG Oral Tablet 50 mg=1 tab, PO, BID, X 15 day, # 30 tab, 0 Refill(s) Active 03/21/2015 [facility] Hydrochlorothiazide 25 mg, 1 tab, Route: PO, Drug form: TAB, ONCE, Dosing Weight 66.818, kg, Start date: 03/21/15 15:54:00, Stop date: 03/21/15 15:54:00Notes: (Same as: Hydrodiuril) With food. Inactive 03/21/2015 [facility] metoprolol tartrate 25 mg, 0.5 tab, Route: PO, Drug form: TAB, ONCE, Dosing Weight 66.818, kg, Priority: STAT, Start date: 03/21/15 15:53:00, Stop date: 03/21/15 15:53:00Notes: (Same as: Lopressor) Inactive 03/21/2015 [facility] potassium chloride 40 mEq, 2 tab, Route: PO, Drug form: ERTAB, ONCE, Dosing Weight 66.818, kg, Priority: STAT, Start date: 03/21/15 15:47:00, Stop date: 03/21/15 15:47:00Notes: (Same as: K-Dur 20) "Do Not Crush" With food and full glass of water Inactive 03/21/2015 [facility] Saline Flush 0.9% 10 mL, Route: IVP, Drug Form: INJ, Dosing Weight 66.818, kg, PRN, PRN Line Flush, Start date: 03/21/15 12:06:00, Duration: 30 day, Stop date: 04/20/15 12:05:00Notes: (Same as: BD Posiflush) Inactive 03/21/2015 [facility] Allergies, Adverse Reactions, Alerts Substance Category Reaction Severity Reaction type Status Date Reported Comments Source codeine Assertion Drug allergy Active [facility] Immunizations No Data Provided for This Section Results Order Name Results Value Reference Range Date Interpretation Comments Source CARDIAC ENZYMES Troponin-I <0.02 0.00 - 0.40 03/21/2015 [facility] CARDIAC ENZYMES Total CK 120 12 - 191 03/21/2015 [facility] CARDIAC ENZYMES CK MB 1.8 0.5 - 3.6 03/21/2015 [facility] CARDIAC ENZYMES CK MB Index 1.5 0.0 - 2.5 03/21/2015 [facility] CHEM PANEL Alk Phos 79 39 - 136 03/21/2015 [facility] CHEM PANEL Bili Total 0.6 0.2 - 1.3 03/21/2015 [facility] CHEM PANEL AST 23 0 - 37 03/21/2015 [facility] CHEM PANEL ALT 27 0 - 65 03/21/2015 [facility] CHEM PANEL Globulin 3.7 2.0 - 4.0 03/21/2015 [facility] CHEM PANEL A/G Ratio 1.1 0.7 - 1.6 03/21/2015 [facility] CHEM PANEL B/C Ratio 16 6 - 25 03/21/2015 [facility] CHEM PANEL AGAP 9.3 10.0 - 20.0 03/21/2015 [facility] CHEM PANEL Creatinine Lvl 1.3 0.5 - 1.4 03/21/2015 [facility] CHEM PANEL Albumin Lvl 4.0 3.5 - 5.0 03/21/2015 [facility] CHEM PANEL Total Protein 7.7 6.4 - 8.4 03/21/2015 [facility] CHEM PANEL CO2 31 24 - 32 03/21/2015 [facility] CHEM PANEL Glucose Lvl 151 70 - 99 03/21/2015 [facility] CHEM PANEL BUN 21 7 - 22 03/21/2015 [facility] CHEM PANEL Calcium Lvl 9.2 8.5 - 10.5 03/21/2015 [facility] CHEM PANEL Sodium Lvl 135 135 - 145 03/21/2015 [facility] CHEM PANEL Chloride Lvl 98 95 - 109 03/21/2015 [facility] CHEM PANEL Potassium Lvl 3.3 3.5 - 5.1 03/21/2015 [facility] CHEM PANEL eGFR 39 03/21/2015 Result Comment: The eGFR is calculated [...] should be multiplied by the estimated BMI. [facility] CHEM PANEL Magnesium Lvl 1.7 1.8 - 2.4 03/21/2015 [facility] CHEM PANEL Phosphorus 2.7 2.5 - 4.5 03/21/2015 [facility] HEMATOLOGY Hgb 13.2 12.0 - 16.0 03/21/2015 [facility] HEMATOLOGY Hct 39.8 36.0 - 48.0 03/21/2015 [facility] HEMATOLOGY MCV 86.0 80.0 - 98.0 03/21/2015 [facility] HEMATOLOGY MPV 8.5 7.4 - 10.4 03/21/2015 [facility] HEMATOLOGY RDW 14.2 11.5 - 14.5 03/21/2015 [facility] HEMATOLOGY Platelet 182 133 - 450 03/21/2015 [facility] HEMATOLOGY MCHC 33.1 32.0 - 36.0 03/21/2015 [facility] HEMATOLOGY MCH 28.4 27.0 - 31.0 03/21/2015 [facility] HEMATOLOGY RBC 4.63 4.20 - 5.40 03/21/2015 [facility] HEMATOLOGY WBC 8.8 3.7 - 10.4 03/21/2015 [facility] HEMATOLOGY INR 1.06 0.85 - 1.17 03/21/2015 [facility] HEMATOLOGY PTT 30.1 22.9 - 35.8 03/21/2015 [facility] HEMATOLOGY PT 14.1 12.0 - 14.7 03/21/2015 [facility] HEMATOLOGY Basophils # 0.1 0.0 - 0.2 03/21/2015 [facility] HEMATOLOGY Monocytes # 0.2 0.0 - 0.8 03/21/2015 [facility] HEMATOLOGY Segs-Bands # 7.8 1.5 - 8.1 03/21/2015 [facility] HEMATOLOGY Lymphocytes # 0.6 1.0 - 5.5 03/21/2015 [facility] HEMATOLOGY Basophils 1.1 0.0 - 1.0 03/21/2015 [facility] HEMATOLOGY Monocytes 2.8 2.0 - 12.0 03/21/2015 [facility] HEMATOLOGY Lymphocytes 7.2 20.0 - 40.0 03/21/2015 [facility] HEMATOLOGY Segs 88.9 45.0 - 75.0 03/21/2015 [facility] URINE AND STOOL UA Color Ltyellow 03/21/2015 [facility] URINE AND STOOL UA Urobilinogen <=1.0 mg/dL 0.1 - 1.0 03/21/2015 [facility] URINE AND STOOL UA Bacteria Occasional /HPF None Seen /HPF 03/21/2015 [facility] URINE AND STOOL UA RBC 3 0 - 2 03/21/2015 [facility] URINE AND STOOL UA WBC 1 0 - 5 03/21/2015 [facility] URINE AND STOOL UA Leuk Est Negative (03/21/15 12:24 PM) Negative 03/21/2015 [facility] URINE AND STOOL UA Sq Epi Occasional /LPF Few /LPF 03/21/2015 [facility] URINE AND STOOL UA Nitrite Negative (03/21/15 12:24 PM) Negative 03/21/2015 [facility] URINE AND STOOL UA Blood Negative (03/21/15 12:24 PM) Negative 03/21/2015 [facility] URINE AND STOOL UA Bili Negative *NA* (03/21/15 12:24 PM) Negative 03/21/2015 [facility] URINE AND STOOL UA Ketones Trace mg/dL Negative mg/dL 03/21/2015 [facility] URINE AND STOOL UA Glucose 500 mg/dL Negative mg/dL 03/21/2015 [facility] URINE AND STOOL UA pH 8.0 5.0 - 8.0 03/21/2015 [facility] URINE AND STOOL UA Spec Grav 1.008 <=1.030 03/21/2015 [facility] URINE AND STOOL UA Turbidity Clear (03/21/15 12:24 PM) Clear 03/21/2015 [facility] URINE AND STOOL UA Protein 100 mg/dL Negative mg/dL 03/21/2015 [facility] Pathology Reports No Data Provided for This Section Diagnostic Reports Report Value Date Source Brain wo contrast CT CT Head no [...] acute brain abnormality is noted. SL:13 03/21/2015 [facility] Spine cervical wo contrast CT CT cervical [...] and moderate carotid calcification. SL: 16 03/21/2015 [facility] Spine lumbar 2 or 3 views DX [...] Spondylosis greatest at L2-L4. SL: 12 03/21/2015 [facility] Chest 1view DX CHEST, ONE VIEW HISTORY: Chest pain. COMPARISON: None available. FINDINGS: The lungs are clear. No significant pleural effusion. No pneumothorax. Heart size normal. Transvenous cardiac pacemaker/AICD. No acute osseous abnormality. SL: 03/21/2015 [facility] Consultation Notes No Data Provided for This Section Discharge Summaries No Data Provided for This Section History and Physicals No Data Provided for This Section Vital Signs Vital Sign Value Date Comments Source Respitory Rate 18 03/21/2015 [facility] Systolic (mm Hg) 126 03/21/2015 [facility] Diastolic (mm Hg) 83 03/21/2015 [facility] Temperature Oral (F) 97.7 F 03/21/2015 [facility] Systolic (mm Hg) 180 03/21/2015 [facility] Diastolic (mm Hg) 82 03/21/2015 [facility] Respitory Rate 23 03/21/2015 [facility] Systolic (mm Hg) 187 03/21/2015 [facility] Diastolic (mm Hg) 92 03/21/2015 [facility] Respitory Rate 19 03/21/2015 [facility] Heart Rate 64 03/21/2015 [facility] Weight 66.818 03/21/2015 [facility] BMI Calculated 26.94 03/21/2015 [facility] Temperature Oral (F) 98.0 F 03/21/2015 [facility] Height 157.48 cm 03/21/2015 [facility] Encounters Location Location Details Encounter Type Encounter Number Reason For Visit Attending Provider ADM Date DC Date Status Source [facility] [id number] Armand Lynn 03/21/2015 03/21/2015 [facility] Procedures No Data Provided for This Section Assessment and Plan No Data Provided for This Section Plan of Care No Data Provided for This Section Social History Social History Date Source Social History TypeResponse Smoking Status Cigarette Smoking Last 365 Days No; Reg Smoking Cessation Counseling No; Former smoker; Exposure to Tobacco Smoke None 03/21/2015 [facility] Family History No Data Provided for This Section Advance Directives No Data Provided for This Section Functional Status No Data Provided for This Section
[2019-01-06 06:51] LABS: BASOPHILS % 0.7 % (0.0-1.0); EOSINOPHILS # (AUTO) 0.1 (0.0-0.4); HEMOGLOBIN 11.1 g/dL (12.0-16.0); LYMPHOCYTES # (AUTO) 1.4 (1.0-3.2); LYMPHOCYTES % 26.3 % (18.0-39.1); MEAN CORPUSCULAR HEMOGLOBIN 29.4 pg (28-32); MEAN CORPUSCULAR HGB CONC 32.6 g/dL (31-35); MEAN CORPUSCULAR VOLUME 89.9 fL (81-99); MONOCYTES # (AUTO) 0.5 (0.2-0.8); MONOCYTES % 8.5 % (4.4-11.3); NEUTROPHILS # (AUTO) 3.4 (2.1-6.9); NEUTROPHILS % 62.3 % (38.7-80.0); PLATELET COUNT 217 x10e3/uL (140-360); RED BLOOD COUNT 3.78 x10e6/uL (3.6-5.1)
[2019-01-06 07:45] VITALS: BP 149/62
== END | disposition home or self-care (01) ==
LOC: OR 05:40
PROVIDERS: ATTEND Physical Medicine & Rehabilitation Pain Medicine
DX: M47.26 Other spondylosis with radiculopathy, lumbar region (principal); M48.061 Spinal stenosis, lumbar region without neurogenic claudication; M17.12 Unilateral primary osteoarthritis, left knee; I25.10 Atherosclerotic heart disease of native coronary artery without angina pectoris; E11.9 Type 2 diabetes mellitus without complications; I11.0 Hypertensive heart disease with heart failure; I50.9 Heart failure, unspecified; K21.9 Gastro-esophageal reflux disease without esophagitis; G30.9 Alzheimer's disease, unspecified; F02.80 Dementia in other diseases classified elsewhere, unspecified severity, without behavioral disturbance, psychotic disturbance, mood disturbance, and anxiety; F32.9 Major depressive disorder, single episode, unspecified; F41.9 Anxiety disorder, unspecified; Z88.6 Allergy status to analgesic agent; Z91.041 Radiographic dye allergy status; Z79.82 Long term (current) use of aspirin; Z79.84 Long term (current) use of oral hypoglycemic drugs; Z79.02 Long term (current) use of antithrombotics/antiplatelets; Z90.5 Acquired absence of kidney; Z95.810 Presence of automatic (implantable) cardiac defibrillator; Z85.528 Personal history of other malignant neoplasm of kidney; Z87.891 Personal history of nicotine dependence
CPT/HCPCS: 36415; 64483; 64484; 82948; 85025; J1100; J2001 ×2; J2250; J2704; Q9967; 77003

== ENCOUNTER 2020-01-07 11:23 | Emergency (ER) | payer MEDICARE, OTHER ==
[~2020-01-07] VITALS: Ht 157.5 cm; Wt 77.6 kg
[~2020-01-07 11:23] MED LIST changes: +CARVEDILOL25 MG PO; +CLONIDINE HCL0.2 MG PO; -DEXAMETHASONE SOD PHOS 10 MG/1 ML VIAL ONE; -IOPAMIDOL 200 MG/ML 20 ML VIAL IT ONE; -LIDOCAINE HCL 1% 30ML-PF VIAL ONE; -LIDOCAINE HCL 2% LOCAL INJ 5 ML SDV VIAL INJ ONE; -MIDAZOLAM HCL 2 MG/2 ML VIAL ONE; -PROPOFOL IV EMULSION 10 MG/ML 20 ML VIAL ONE; +SERTRALINE HCL50 MG PO
[2020-01-07 13:12] LABS: BASOPHILS # (AUTO) 0.1 (0.0-0.1); BASOPHILS % 0.5 % (0.0-1.0); EOSINOPHILS % 0.1 % (0.0-6.0); HEMATOCRIT 38.9 % (34.2-44.1); HEMOGLOBIN 12.8 g/dL (12.0-16.0); LYMPHOCYTES # (AUTO) 0.7 (1.0-3.2); LYMPHOCYTES % 4.4 % (18.0-39.1); MEAN CORPUSCULAR HEMOGLOBIN 27.8 pg (28-32); MEAN CORPUSCULAR HGB CONC 32.9 g/dL (31-35); MEAN CORPUSCULAR VOLUME 84.6 fL (81-99); MONOCYTES # (AUTO) 0.5 (0.2-0.8); NEUTROPHILS # (AUTO) 14.3 (2.1-6.9); NEUTROPHILS % 91.3 % (38.7-80.0); PLATELET COUNT 258 x10e3/uL (140-360); RED CELL DISTRIBUTION WIDTH 13.6 % (11.7-14.4)
[2020-01-07] MEDS ORDERED: MORPHINE SULFATE 2 MG/ML SYR 1ML ONE (13:13)
[2020-01-07] MEDS ORDERED: AMIODARONE HCL 150MG 100 ML ONE (13:14)
[2020-01-07] MEDS ORDERED: AMIODARONE HCL 150MG 100 ML IV SCH (13:15)
[2020-01-07] MEDS ORDERED: AMIODARONE HCL 360MG 200 ML IV SCH ×2 (13:15→18:00)
[2020-01-07 13:18] LABS: CLARITY,URINE CLEAR (CLEAR); COLOR,URINE YELLOW (YELLOW)
[2020-01-07 13:19] LABS: BILIRUBIN,URINE NEGATIVE (NEGATIVE); KETONES,URINE 1+ (NEGATIVE); LEUKOCYTE ESTERASE ,URINE NEGATIVE (NEGATIVE); NITRITE,URINE NEGATIVE (NEGATIVE); PROTEIN,URINE DIPSTICK 2+ (NEGATIVE); URINE UROBILINOGEN 1 mg/dL (0.2 - 1)
[2020-01-07 13:20] LABS: BACTERIA,URINE RARE /HPF; EPITHELIAL CELLS,URINE FEW /LPF
[2020-01-07 13:27] LABS: ALANINE AMINOTRANSFERASE 14 IU/L (0-55); ALBUMIN 3.9 g/dL (3.5-5.0); ALBUMIN/GLOBULIN RATIO 1.1 (0.8-2.0); ALKALINE PHOSPHATASE 101 IU/L (40-150); ANION GAP 15.9 mmol/L (8-16); BLOOD UREA NITROGEN 20 mg/dL (7-26); BUN/CREATININE RATIO 21 (6-25); CALCIUM 9.9 mg/dL (8.4-10.2); CARBON DIOXIDE 22 mmol/L (22-29); CHLORIDE 105 mmol/L (98-107); CREATINE KINASE 35 IU/L (29-168); CREATININE, SERUM 0.94 mg/dL (0.57-1.11); EST GLOMERULAR FILTRATION RATE 56 ML/MIN (60-); GLUCOSE 215 mg/dL (74-118); POTASSIUM 3.9 mmol/L (3.5-5.1); SODIUM 139 mmol/L (136-145)
[2020-01-07] MEDS ORDERED: MORPHINE SULFATE 2 MG/ML SYR 1ML IV NR (13:45)
[2020-01-07 13:56] LABS: INR 0.96; PROTHROMBIN TIME 13.4 seconds (11.9-14.5)
[2020-01-07 13:57] LABS: PARTIAL THROMBOPLASTIN TIME 25.2 seconds (23.8-35.5)
[2020-01-07] MEDS: AMIODARONE HCL 900 MG in DEXTROSE 5 % 500ML BOTTLE 500 ML IV SCH ×2 (14:00→21:17)
--- NOTE | 2020-01-07 15:27 | Diagnostic Imaging Report ---
HIP RIGHT 2-3 VW (+/- PELVIS), FEMUR TWO VIEW MINIMUM RIGHT - Multiple views HISTORY: ^FALL COMPARISON: None available. FINDINGS: There is a displaced fracture of the right femoral neck with acute angulation at the fracture apex. There is no evidence of dislocation. Degenerative changes are seen in both hip joints. There is soft tissue swelling about the fracture site. Right knee was incompletely included and evaluated on this exam. IMPRESSION: Displaced fracture of the right femoral neck . Recommendations knee x-ray for evaluation of knee joint. Signed by: Martin Flores MD on 01/07/2020 3:24 PM
--- NOTE | 2020-01-07 15:31 | Diagnostic Imaging Report ---
EXAMINATION: CHEST SINGLE (NOT PORTABLE) INDICATION: S/P FALL COMPARISON: Chest x-ray dated 07/16/2019 COMPARISON: Chest radiograph . FINDINGS: LINES/TUBES:Left chest dual-lead AICD. LUNGS: No focal consolidation or pulmonary edema. Calcified granuloma is seen in right lung base. PLEURA:No pleural effusion or pneumothorax. MEDIASTINUM:The cardiomediastinal silhouette appears normal in size and shape. Atherosclerotic calcifications of the thoracic aorta. BONES/SOFT TISSUES: No displaced fracture. IMPRESSION: No traumatic injury. Signed by: Martin Flores MD on 01/07/2020 3:27 PM
--- NOTE | 2020-01-07 15:46 | Diagnostic Imaging Report ---
Examination: CT head without contrast Clinical Indication: Fall; head injury. Technique: Transaxial noncontrast images from the skull base through the vertex were obtained. Sagittal and coronal reformatted images were done. Dose modulation, iterative reconstruction, and/or weight based adjustment of the mA/kV was utilized to reduce the radiation dose to as low as reasonably achievable. Comparison: November 02, 2018. Findings: Scalp: No abnormalities. Bones: Intact. No fractures. No blastic or lytic lesions. Brain sulci: Appropriate for patient's age. Ventricles: Normal in size and configuration. No hydrocephalus. . Extra-axial space: No abnormalities. Parenchyma: Unchanged confluent areas of low-attenuation within subcortical and periventricular white matter, nonspecific, but could represent microvascular ischemic disease. Unchanged chronic lacunar infarcts in the left thalamocapsular region, left putamen, and left caudate body. No masses, hemorrhage, or acute or chronic cortical based vascular insults. Suprasellar region: No abnormalities. Craniocervical junction: The foramen magnum is patent. No Chiari one malformation. Incidental findings: Atherosclerotic calcification of the cavernous and supraclinoid internal carotid and V4 segments of the bilateral vertebral arteries. Opacified right maxillary sinus. Impression: 1. No acute intracranial finding. 2. Unchanged chronic microvascular ischemic change and chronic lacunar infarcts. Signed by: Dr. Sissy Corley M.D. on 01/07/2020 3:42 PM
--- NOTE | 2020-01-07 15:53 | Diagnostic Imaging Report ---
Examination: CT CERVICAL SPINE WO HISTORY:Neck pain and injury after fall. COMPARISON:None. TECHNIQUE: Multidetector helical axial images were obtained without contrast from the foramen magnum to T1. Coronal and sagittal reformatted images were done. Bone and soft tissue windows were evaluated. Dose modulation, iterative reconstruction, and/or weight based adjustment of the mA/kV was utilized to reduce the radiation dose to as low as reasonably achievable. FINDINGS: Alignment:Normal lordosis with grade I anterolisthesis of C5 on C6. Vertebrae: Normal height and density. No acute fracture, infection or neoplasm. Disc space heights: Normal height. Caliber of spinal canal: Developmentally normal. Posterior fossa and craniocervical junction: Foramen magnum patent. No Chiari 1 malformation. Soft tissues: Atherosclerotic calcification of the bilateral carotid bifurcations. Degenerative changes: Severe left facet arthropathy from C2-C6 with severe left foraminal narrowing at C3-C4 and C4-C5. No disc bulge/ herniation or canal stenosis. Visualized lung apices: No abnormalities. IMPRESSION: 1. No acute abnormalities. 2. Degenerative change. Grade I anterolisthesis of C5 on C6. Signed by: Dr. Sissy Corley M.D. on 01/07/2020 3:50 PM
[2020-01-07] MEDS ORDERED: METOPROLOL TARTRATE INJ 1 MG/ML VIAL IV ONE (16:30)
--- NOTE | 2020-01-07 17:21 | NUR ---
ECTOPY RESOLVED, MD AWARE. REMAINS AFIB CONTROLLED AND BP COMING DOWN NICELY.
--- NOTE | 2020-01-07 18:41 | Emergency Department Note ---
History of Present Illnes History of Present Illness Chief Complaint: General Medicine Complaints History of Present Illness This is a 84 year old female RT HIP PAIN AFTER FALL AT SC. SHORTENED AND ROTATED. 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 Any updates have been documented here. Past Medical History Recent Fever: No Clinical Suspicion of Infectio: No New/Unexplained Change in Ment: No Past Medical History: Diabetes, CHF, Cancer, UTI's, Depression, GERD Other Medical History: Kidney CA dementia Other Surgery: BACK, PARTIAL NEPHERECTOMY JEANNA-back Social History Smoking Cessation: Unknown if ever smoked Counseling Performed: No Alcohol Use: None Any Illegal Drug Use: No (UNKNOWN) TB Exposure/Symptoms: No Physically hurt or threatened: No Family History Family history of heart diseas: No Other Last Tetanus: UTD Any Pre-Existing Lines (PICC,: No Review of Systems Review of Systems Constitutional: Reports no symptoms EENTM: Reports no symptoms Cardiovascular: Reports no symptoms Respiratory: Reports no symptoms Gastrointestinal: Reports no symptoms Genitourinary: Reports no symptoms Musculoskeletal: Reports as per HPI Integumentary: Reports no symptoms Neurological: Reports no symptoms Psychological: Reports no symptoms Endocrine: Reports no symptoms Hematological/Lymphatic: Reports no symptoms Physical Exam Related Data Allergies: Coded Allergies: No Known Allergies (Unverified , 10/22/18) Triage Vital Signs Vital Signs Date Time Temp Pulse Resp B/P (MAP) Pulse Ox O2 Delivery O2 Flow Rate FiO2 01/07/20 11:44 98.2 132 18 155/96 98 Room Air Vital signs reviewed: Yes Physical Exam CONSTITUTIONAL Constitutional: Present well-developed, Present well-nourished HENT HENT: Present normocephalic, Present atraumatic, Present oropharynx clear/moist, Present nose normal HENT L/R: Present left ext ear normal, Present right ext ear normal EYES Eyes: Reports PERRL, Reports conjunctivae normal NECK Neck: Present ROM normal PULMONARY Pulmonary: Present effort normal, Present breath sounds normal CARDIOVASCULAR Cardiovascular: Present regular rhythm, Present tachycardia, Present other (FREQ ECTOPY) GASTROINTESTINAL Abdominal: Present soft, Present nontender, Present bowel sounds normal GENITOURINARY Genitourinary: Present exam deferred SKIN Skin: Present warm, Present dry MUSCULOSKELETAL Musculoskeletal: Present tenderness (RIGHT HIP VERY TENDER, LEG SHORTENED AND EXTERNALLY ROTATED, PELVIS STABLE, N/V INTACT DISTALLY) NEUROLOGICAL Neurological: Present alert, Present no gross motor or sensory deficits, Present other (ORIENTED TO NAME ONLY) PSYCHOLOGICAL Psychological: Present mood/affect normal, Present judgement normal Results Laboratory Result Diagram: 01/07/20 1250 01/07/20 1250 Laboratory Laboratory Tests Test 01/07/20 13:40 01/07/20 12:50 Prothrombin Time 13.4 seconds (11.9-14.5) Prothromb Time International Ratio 0.96 Activated Partial Thromboplast Time 25.2 seconds (23.8-35.5) White Blood Count 15.59 x10e3/uL (4.8-10.8) Red Blood Count 4.60 x10e6/uL (3.6-5.1) Hemoglobin 12.8 g/dL (12.0-16.0) Hematocrit 38.9 % (34.2-44.1) Mean Corpuscular Volume 84.6 fL (81-99) Mean Corpuscular Hemoglobin 27.8 pg (28-32) Mean Corpuscular Hemoglobin Concent 32.9 g/dL (31-35) Red Cell Distribution Width 13.6 % (11.7-14.4) Platelet Count 258 x10e3/uL (140-360) Neutrophils (%) (Auto) 91.3 % (38.7-80.0) Lymphocytes (%) (Auto) 4.4 % (18.0-39.1) Monocytes (%) (Auto) 3.0 % (4.4-11.3) Eosinophils (%) (Auto) 0.1 % (0.0-6.0) Basophils (%) (Auto) 0.5 % (0.0-1.0) Neutrophils # (Auto) 14.3 (2.1-6.9) Lymphocytes # (Auto) 0.7 (1.0-3.2) Monocytes # (Auto) 0.5 (0.2-0.8) Eosinophils # (Auto) 0.0 (0.0-0.4) Basophils # (Auto) 0.1 (0.0-0.1) Absolute Immature Granulocyte (auto 0.11 x10e3/uL (0-0.1) Urine Color Yellow (YELLOW) Urine Clarity Clear (CLEAR) Urine pH 7 (5 - 7) Urine Specific [place] 1.025 (1.010-1.025) Urine Protein 2+ (NEGATIVE) Urine Glucose (UA) 1+ (NEGATIVE) Urine Ketones 1+ (NEGATIVE) Urine Blood Small (NEGATIVE) Urine Nitrite Negative (NEGATIVE) Urine Bilirubin Negative (NEGATIVE) Urine Urobilinogen 1 mg/dL (0.2 - 1) Urine Leukocyte Esterase Negative (NEGATIVE) Urine RBC 6-10 /HPF (0-5) Urine WBC 6-10 /HPF (0-5) Urine Epithelial Cells Few /LPF (NONE) Urine Bacteria Rare /HPF (NONE) Sodium Level 139 mmol/L (136-145) Potassium Level 3.9 mmol/L (3.5-5.1) Chloride Level 105 mmol/L (98-107) Carbon Dioxide Level 22 mmol/L (22-29) Anion Gap 15.9 mmol/L (8-16) Blood Urea Nitrogen 20 mg/dL (7-26) Creatinine 0.94 mg/dL (0.57-1.11) Estimat Glomerular Filtration Rate 56 ML/MIN (60-) BUN/Creatinine Ratio 21 (6-25) Glucose Level 215 mg/dL (74-118) Calcium Level 9.9 mg/dL (8.4-10.2) Total Bilirubin 0.4 mg/dL (0.2-1.2) Aspartate Amino Transf (AST/SGOT) 16 IU/L (5-34) Alanine Aminotransferase (ALT/SGPT) 14 IU/L (0-55) Alkaline Phosphatase 101 IU/L (40-150) Creatine Kinase 35 IU/L (29-168) Creatine Kinase MB 1.30 ng/mL (0-5.0) Troponin I < 0.001 ng/mL (0-0.300) Total Protein 7.3 g/dL (6.5-8.1) Albumin 3.9 g/dL (3.5-5.0) Globulin 3.4 g/dL (2.3-3.5) Albumin/Globulin Ratio 1.1 (0.8-2.0) Lab results reviewed: Yes Imaging Imaging results reviewed: Yes Impressions EXAMINATION: CHEST SINGLE (NOT PORTABLE) INDICATION: S/P FALL COMPARISON: Chest x-ray dated 07/16/2019 COMPARISON: Chest radiograph . FINDINGS: LINES/TUBES:Left chest dual-lead AICD. LUNGS: No focal consolidation or pulmonary edema. Calcified granuloma is seen in right lung base. PLEURA:No pleural effusion or pneumothorax. MEDIASTINUM:The cardiomediastinal silhouette appears normal in size and shape. Atherosclerotic calcifications of the thoracic aorta. BONES/SOFT TISSUES: No displaced fracture. IMPRESSION: No traumatic injury. HIP RIGHT 2-3 VW (+/- PELVIS), FEMUR TWO VIEW MINIMUM RIGHT - Multiple views HISTORY: ^FALL COMPARISON: None available. FINDINGS: There is a displaced fracture of the right femoral neck with acute angulation at the fracture apex. There is no evidence of dislocation. Degenerative changes are seen in both hip joints. There is soft tissue swelling about the fracture site. Right knee was incompletely included and evaluated on this exam. IMPRESSION: Displaced fracture of the right femoral neck . Recommendations knee x-ray for evaluation of knee joint. Signed by: Martin Flores MD on 01/07/2020 3:24 PM Examination: CT CERVICAL SPINE WO HISTORY:Neck pain and injury after fall. COMPARISON:None. TECHNIQUE: Multidetector helical axial images were obtained without contrast from the foramen magnum to T1. Coronal and sagittal reformatted images were done. Bone and soft tissue windows were evaluated. Dose modulation, iterative reconstruction, and/or weight based adjustment of the mA/kV was utilized to reduce the radiation dose to as low as reasonably achievable. FINDINGS: Alignment:Normal lordosis with grade I anterolisthesis of C5 on C6. Vertebrae: Normal height and density. No acute fracture, infection or neoplasm. Disc space heights: Normal height. Caliber of spinal canal: Developmentally normal. Posterior fossa and craniocervical junction: Foramen magnum patent. No Chiari 1 malformation. Soft tissues: Atherosclerotic calcification of the bilateral carotid bifurcations. Degenerative changes: Severe left facet arthropathy from C2-C6 with severe left foraminal narrowing at C3-C4 and C4-C5. No disc bulge/ herniation or canal stenosis. Visualized lung apices: No abnormalities. IMPRESSION: 1. No acute abnormalities. 2. Degenerative change. Grade I anterolisthesis of C5 on C6. Signed by: Dr. Sissy Corley M.D. on 01/07/2020 3:50 PM Examination: CT head without contrast Clinical Indication: Fall; head injury. Technique: Transaxial noncontrast images from the skull base through the vertex were obtained. Sagittal and coronal reformatted images were done. Dose modulation, iterative reconstruction, and/or weight based adjustment of the mA/kV was utilized to reduce the radiation dose to as low as reasonably achievable. Comparison: November 02, 2018. Findings: Scalp: No abnormalities. Bones: Intact. No fractures. No blastic or lytic lesions. Brain sulci: Appropriate for patient's age. Ventricles: Normal in size and configuration. No hydrocephalus. . Extra-axial space: No abnormalities. Parenchyma: Unchanged confluent areas of low-attenuation within subcortical and periventricular white matter, nonspecific, but could represent microvascular ischemic disease. Unchanged chronic lacunar infarcts in the left thalamocapsular region, left putamen, and left caudate body. No masses, hemorrhage, or acute or chronic cortical based vascular insults. Suprasellar region: No abnormalities. Craniocervical junction: The foramen magnum is patent. No Chiari one malformation. Incidental findings: Atherosclerotic calcification of the cavernous and supraclinoid internal carotid and V4 segments of the bilateral vertebral arteries. Opacified right maxillary sinus. Impression: 1. No acute intracranial finding. 2. Unchanged chronic microvascular ischemic change and chronic lacunar infarcts. Signed by: Dr. Sissy Corley M.D. on 01/07/2020 3:42 PM Procedures 12 Lead ECG Interpretation ECG Interpretation : ECG: ECG 1 Home Care Giver: Interpreted by ED physician Date: Jan 07, 2020 Time: 12:29 Rhythm: atrial flutter (2:1 CONDUCTION) Rate: tachycardia (137) QRS axis: normal ST segments normal: Yes T wave inversion: II, III, aVF, V5, V6 T waves flattening: I, V3, V4 Clinical Impression: abnormal ECG Critical Care Time Total Critical Care Time (min): 60 Critical care time exclusive o: separately billable procedures Critcal care necessary due to: circulatory failure, trauma Critcal care time spent by me: discussion w consultants, evaluation patient response to tx, examination of patient, order/review laboratory studies, order/review radiographic studies, re-evaluation of patient condition Assessment & Plan Medical Decision Making MDM S/P FALL WITH APPARENT RIGHT HIP FX AND TACHYCARDIA - CBC, CHEM, ECG, CARDIAC ENZYMES, COAG'S, CT BRAIN/C-SPINE, UA, HIP/PELVIS XRAYS, CXR - R/O CEREBRAL BLEED, C-SPINE FX, HIP FX, PELVIS FX, STEMI/NSTEMI/AFIB-FLUTTER, UTI. Reassessment Reassessment PT HAVING A LOT ECTOPY INCLUDING NSVT WITH LONGEST RUN ~12 BEATS - I STARTED AMIODARONE AND GAVE SMALL 2.5 MG DOSE OF METOPROLOL WHICH CONTROLLED HR AND DECREASED ECTOPY AND NO MORE NSVT NO ICU/IMCU BEDS AVAILABLE HERE, ADMINISTRATION WANTS PT TRANSFERRED - MEDICAL ADMINISTRATIVE TECHNICIAN INITIATED TRANSFER - NO BEDS AT REPLACED BY [facility] TO [place] AND TO [place]. HE TRIED [facility] AND FOUND A BED AVAILABLE THERE AT [facility]. I SPOKE WITH DR VARGAS (ORTHO), DR ROCK (CARDIOLOGY), AND HOSPITALIST DR LARRY WHO ACCEPTED PATIENT FOR TRANSFER Assessment & Plan Final Impression: (1) Atrial fibrillation with RVR (2) NSVT (nonsustained ventricular tachycardia) (3) Femoral neck fracture (4) Fall Depart Disposition: TRANS TO OTHER [facility] FACILITY Last Vital Signs Date Time Temp Pulse Resp B/P (MAP) Pulse Ox O2 Delivery O2 Flow Rate FiO2 01/07/20 17:54 104 18 164/108 98 01/07/20 11:44 98.2 Room Air Home Meds Reported Medications Sertraline Hcl (SERTRALINE HCL) 50 Mg Tablet, 50 MG PO DAILY 07/12/19 Clonidine Hcl (CLONIDINE HCL) 0.2 Mg Tablet, 0.2 MG PO BID 07/12/19 Carvedilol (CARVEDILOL) 25 Mg Tablet, 25 MG PO BID 07/12/19 Oxybutynin Chloride (OXYBUTYNIN CHLORIDE) 5 Mg Tablet, 10 MG PO BID, #30 TAB 09/15/18 Nystatin (NYSTOP) 60 Gm Powder, TOP PRN 09/15/18 Glimepiride (GLIMEPIRIDE) 2 Mg Tablet, 1 MG PO HS, TAB 09/15/18 Atorvastatin Calcium (ATORVASTATIN CALCIUM) 20 Mg Tablet, 20 MG PO HS, #30 TAB 09/15/18 Montelukast Sodium (MONTELUKAST SODIUM) 10 Mg Tablet, 10 MG PO HS, #30 TAB 09/15/18 [Entresto] No Conflict Check, 24 MG PO DAILY 09/15/18 Ranolazine (RANEXA) 500 Mg Tabsr, 500 MG PO BID, #60 TAB 04/07/18 Nitrofurantoin Macrocrystal (NITROFURANTOIN) 100 Mg Capsule, 50 MG PO DAILY 04/07/18 [Xarelto] No Conflict Check, 20 MG PO DAILY 04/07/18 Omeprazole Magnesium (PRILOSEC) 10 Mg Suspdr.pkt, 40 MG PO HS 04/07/18 Clonidine Hcl (CLONIDINE HCL) 0.3 Mg Tablet, 0.2 MG PO HS, #30 TAB 03/04/17 Sitagliptin Phosphate (JANUVIA) 100 Mg Tablet, 100 MG PO DAILY, #30 TAB 03/04/17 Donepezil Hcl (ARICEPT) 5 Mg Tablet, 10 MG PO BID, #60 TAB 03/04/17 Amlodipine Besylate (AMLODIPINE BESYLATE) 5 Mg Tablet, 10 MG PO DAILY, #30 TAB 03/04/17 Hydrocodone Bit/Acetaminophen (NORCO 7.5-325 TABLET) 1 Each Tablet, 1 EA PO PRN, TAB 03/04/17 Furosemide (FUROSEMIDE) 40 Mg Tablet, 20 MG PO DAILY, #30 TAB 08/27/16 Carvedilol (COREG) 3.125 Mg Tab, 6.25 MG PO BID 11/09/14 Sertraline Hcl (SERTRALINE HCL) 25 Mg Tablet, 50 MG PO DAILY 12/31/13 Aspirin (ASPIR 81) 81 Mg Tablet.dr, 81 MG PO DAILY 01/21/13 Medications in the ED Morphine Sulfate 2 mg STK-MED ONCE .ROUTE ; Start 01/07/20 at 13:13; Stop 01/07/20 at 13:07; Status DC Amiodarone HCl 100 ml @ ud STK-MED ONCE .ROUTE ; Start 01/07/20 at 13:14; Stop 01/07/20 at 13:08; Status DC Amiodarone HCl 100 ml @ 600 mls/hr ONCE IV Last administered on 01/07/20at 13:20; Admin Dose 600 MLS/HR; Start 01/07/20 at 13:15; Stop 02/06/20 at 13:14 Amiodarone HCl 200 ml @ 33 mls/hr Q6H IV ; Start 01/07/20 at 18:00; Stop 01/07/20 at 23:59; Status UNV Amiodarone HCl 200 ml @ 16.6 mls/hr Q18H IV ; Start 01/07/20 at 13:15; Stop at 07:14; Status UNV Amiodarone HCl 900 mg/Dextrose/ Water 518 ml @ 33 mls/hr [id number] IV Last administered on 01/07/20at 14:00; Admin Dose 33 MLS/HR; Start 01/07/20 at 13:30 Morphine Sulfate 2 mg NOW IV Last administered on 01/07/20at 13:00; Admin Dose 2 MG; Start 01/07/20 at 13:45; Stop 01/07/20 at 14:59; Status DC Metoprolol Tartrate 2.5 mg ONCE ONCE IV Last administered on 01/07/20at 16:45; Admin Dose 2.5 MG; Start 01/07/20 at 16:30; Stop 01/07/20 at 16:58; Status DC HORTENCIA DANGELO MD Jan 07, 2020 18:41
--- NOTE | 2020-01-07 19:11 | NUR ---
WALKING ROUNDS WITH DAVID RN-ASSUMED CARE
--- NOTE | 2020-01-07 19:20 | NUR ---
SPOKE WITH SON TWICE AND DAUGHTER TWICE.
--- NOTE | 2020-01-07 19:39 | NUR ---
REPORT TO LYNN ROCHE IN [facility] ICU. MD SPOKE WITH DAUGHTER AND SON REGARDING TRANSFER.
[2020-01-07] MEDS ORDERED: MORPHINE SULFATE 2 MG/ML SYR 1ML IV STA ×2 (19:55→21:01)
[2020-01-07] MEDS ORDERED: ONDANSETRON HCL INJ 2MG/ML 2ML 2 MG/ML VIAL IV STA (21:01)
[2020-01-07 22:11] VITALS: BP 140/110
== END 2020-01-07 21:54 | disposition other institution (70) ==
LOC: ER 11:50
DX: I48.20 Chronic atrial fibrillation, unspecified (principal); I47.2 Ventricular tachycardia; S72.001A Fracture of unspecified part of neck of right femur, initial encounter for closed fracture; W18.30XA Fall on same level, unspecified, initial encounter; Y92.128 Other place in nursing home as the place of occurrence of the external cause; E11.9 Type 2 diabetes mellitus without complications; I50.9 Heart failure, unspecified; F32.9 Major depressive disorder, single episode, unspecified; K21.9 Gastro-esophageal reflux disease without esophagitis; Z11.59 Encounter for screening for other viral diseases; Z85.528 Personal history of other malignant neoplasm of kidney
CPT/HCPCS: 36415; 51700; 70450; 71045; 72125; 73502; 73552; 80053; 81001; 82550; 82553; 84484; 85025; 85610; 85730; 87086; 87186; 87635; 93005; 99284; J0282; J2270; J2405; U0002